=== PATIENT | female | born 2000 | race Caucasian/White ===

== ENCOUNTER 2023-02-27 12:16 | Emergency (ER) | payer OTHER ==
--- OUTSIDE RECORDS SUMMARY | 2023-02-27 12:20 | XMS REPORT | Continuity of Care Document ---
:2000 Author Organization [facility] t Address [address] [facility] [place] [place] [address] Care Team Providers Name Role Phone Bebeto Armenta Primary Care Physician Geovany Bebeto Chris Attending Clinician Unavailable Magi GROVES, Sendil K.H. Attending Clinician MAGI SENDCHRIS K.H. Attending Clinician Unavailable Doctor Unassigned, [place] Attending Clinician Unavailable Viraj Armenta Attending Clinician Leobardo Pool DO Attending Clinician FOZIA BARTHOLOMEW Attending Clinician Unavailable Nurse, [facility] Attending Clinician Unavailable Guera Enrique MD Attending Clinician MIGNON SOW K.H. Admitting Clinician Unavailable Payers Payer Name Policy Type Policy Number Effective Date Expiration Date [place] [address] [id number] 2021 [facility] 00:00:00 Spirit - [facility] YOLANDA [id number] 2019 HEALTHCARE 00:00:00 MEDICAID Problems Condition Condition Condition Status Onset Resolution Last Treating Co mments Source Name Details Category Date Date Treatment Clinician Date [id number] Encounter Problem Com mon for Spirit Depo-Prove - [facility] ra [facility] [id number] Non-season Problem Com mon al Spirit allergic [facility] [id number] Adult BMI Problem Com mon 40.0-44.9 Spirit kg/sq m - [facility] [id number] Uses Problem Common Depo-Prove Spirit ra as - [facility] primary [facility] [id number] Down's Problem Common syndrome [facility] [id number] History of Problem Co mmon open heart [facility] surgery [facility] Allergies, Adverse Reactions, Alerts Allergy Allergy Status Severity Reaction(s) Onset Inactive Treating Comm ents Source Name Type Date Date Clinician NO KNOWN Drug Active Univers ALLERGIE Class ity of [facility] Social History Social Habit Start Date Stop Date Quantity Comments Source Sex Assigned At [facility] History SDOH University o f Alcohol Comment [facility] History SDOH University o f Alcohol Std [facility] History SDOH University o f Alcohol Binge [facility] Exposure to Not sure University of SARS-CoV-2 [facility] (event[facility] Alcohol intake 2021-07-04 2021-07-04 Lifetime University of 00:00:00 00:00:00 non-drinker [facility] (finding) [facility] Tobacco use and 2019-02-19 2019-02-19 Never used Universit y of exposure 00:00:00 00:00:00 [facility] History SDOH 2019-02-19 2019-02-19 1 University o f Alcohol Frequency 00:00:00 00:00:00 [facility] edical Branch Smoking Status Start Date Stop Date Source Unknown if ever smoked [facility] Never smoker [facility] Medications Ordered Filled Start Stop Current Ordering Indication Dosage Frequency Signature Comments Components Source Medication Medication Date Date Medication? Clinician (SIG) Name Name [facility] Area Supervisor [facility] Area Supervisor No 150mg Common a a 1-05 Spirit (Medroxypro (Medroxypro 00:00: - [facility] gesterone gesterone ac) ac) [facility] Area Supervisor [facility] Area Supervisor 2021-06 No 150mg Common a a 0-06 Spirit (Medroxypro (Medroxypro 00:00: - [facility] gesterone gesterone ) ac) [facility] [employer] Area Supervisor [facility] [facility] [employer] Area Supervisor 2021-06 No 150mg Common a a 0-06 Spirit (Medroxypro (Medroxypro 00:00: - [facility] gesterone gesterone ) ac) [facility] [facility] [employer] Area Supervisor [facility] [facility] [employer] Area Supervisor 2021-06 No 150mg Common a a 0-06 Spirit (Medroxypro (Medroxypro 00:00: - [facility] gesterone gesterone ) ac) [facility] [employer] Area Supervisor [facility] [facility] [employer] Area Supervisor No 150mg Common a a 7-06 Spirit (Medroxypro (Medroxypro 00:00: - [facility] gesterone gesterone ) ac) [facility] [employer] Area Supervisor [facility] [facility] [employer] Area Supervisor No 150mg Common a a 7-06 Spirit (Medroxypro (Medroxypro 00:00: - [facility] gesterone gesterone ac) ac) [facility] [employer] Area Supervisor [employer] [facility] [employer] Area Supervisor No 150mg Common a a 7-06 Spirit (Medroxypro (Medroxypro 00:00: - [facility] gesterone gesterone ac) ac) [facility] [employer] Area Supervisor [facility] [facility] [employer] Area Supervisor No 150mg Common a a 7-06 Spirit (Medroxypro (Medroxypro 00:00: - [facility] gesterone gesterone ac) ac) [facility] [employer] Area Supervisor [employer] Area Supervisor No 150mg Common a a 7-06 Spirit (Medroxypro (Medroxypro 00:00: - [facility] gesterone gesterone ac) ac) [facility] [employer] Area Supervisor [facility] [facility] [employer] Area Supervisor No 150mg Common a a - Spirit (Medroxypro (Medroxypro 00:00: - [facility] gesterone gesterone ) ac) [facility] [employer] Area Supervisor [employer] Area Supervisor No 150mg Common a a 01-02 Spirit (Medroxypro (Medroxypro 00:00: - [facility] gesterone gesterone ) ac) [facility] [employer] Area Supervisor [employer] Area Supervisor No 150mg Common a a 01-02 Spirit (Medroxypro (Medroxypro 00:00: - [facility] gesterone gesterone ) ac) [facility] [employer] Area Supervisor [employer] Area Supervisor No 150mg Common a a 01-01 Spirit (Medroxypro (Medroxypro 00:00: - [facility] gesterone gesterone ) ac) [facility] [employer] Area Supervisor [employer] Area Supervisor No 150mg Common a a 01-01 Spirit (Medroxypro (Medroxypro 00:00: - [facility] gesterone gesterone ) ac) [facility] [employer] Area Supervisor [employer] Area Supervisor No 150mg Common a a 01-01 Spirit (Medroxypro (Medroxypro 00:00: - [facility] gesterone gesterone ) ac) [facility] [employer] Area Supervisor [employer] Area Supervisor No 150mg Common a a 01-01 Spirit (Medroxypro (Medroxypro 00:00: - [facility] gesterone gesterone ) ac) [facility] [employer] Area Supervisor [employer] Area Supervisor No 150mg Common a a - Spirit (Medroxypro (Medroxypro 00:00: - [facility] gesterone gesterone ac) ac) [facility] [employer] Area Supervisor [employer] Area Supervisor No 150mg Common a a - Spirit (Medroxypro (Medroxypro 00:00: - [facility] gesterone gesterone ac) ac) [facility] [employer] Area Supervisor [employer] Area Supervisor No 150mg Common a a 7-05 Spirit (Medroxypro (Medroxypro 00:00: - [facility] gesterone gesterone ac) ac) [facility] [employer] Area Supervisor [employer] Area Supervisor No 150mg Common a a 7- Spirit (Medroxypro (Medroxypro 00:00: - [facility]I gesterone gesterone ac) ac) [facility] Ketoconazol Ketoconazol 2021- No 1{appli QD Ketoconazo e 2 % e 2 % 12-14 cation} le 2 % 00:00: 00:00 00 :00 [facility] [facility] Area Supervisor [employer] Area Supervisor No 150mg Common a a 4- Spirit (Medroxypro (Medroxypro 00:00: - [facility]I gesterone gesterone ) ac) [facility] [employer] Area Supervisor [employer] Area Supervisor No 150mg Common a a 4- Spirit (Medroxypro (Medroxypro 00:00: - [facility]I gesterone gesterone ) ac) [facility] [employer] Area Supervisor [employer] Area Supervisor No 150mg Common a a 4- Spirit (Medroxypro (Medroxypro 00:00: - [facility] gesterone gesterone ac) ac) [facility] [employer] Area Supervisor [employer] Area Supervisor No 150mg Common a a 4- Spirit (Medroxypro (Medroxypro 00:00: - [facility] gesterone gesterone ac) ac) [facility] [employer] Area Supervisor [employer] Area Supervisor No 150mg Common a a 4- Spirit (Medroxypro (Medroxypro 00:00: - [facility] gesterone gesterone ac) ac) [facility] [employer] Area Supervisor [employer] Area Supervisor No 150mg Common a a 4- Spirit (Medroxypro (Medroxypro 00:00: - [facility]I gesterone gesterone ac) ac) [facility] [employer] Area Supervisor [employer] Area Supervisor No 150mg Common a a 4-04 Spirit (Medroxypro (Medroxypro 00:00: - [facility]I gesterone gesterone ) ac) [facility] [employer] Area Supervisor [employer] Area Supervisor No 150mg Common a a 4-04 Spirit (Medroxypro (Medroxypro 00:00: - [facility]I gesterone gesterone ) ac) [facility] [employer] Area Supervisor [employer] Area Supervisor No 150mg Common a a 4-04 Spirit (Medroxypro (Medroxypro 00:00: - [facility]I gesterone gesterone ) ac) [facility] [employer] Area Supervisor [employer] Area Supervisor No 150mg Common a a 4-04 Spirit (Medroxypro (Medroxypro 00:00: - [facility]I gesterone gesterone ) ac) [facility] Yes Take by Uni vers sodium 1-05 mouth. ity of (SINGULAIR 13:41: [place] ORAL) [address] [place] [address] Yes Take by Uni vers sodium 1-05 mouth. ity of (SINGULAIR 13:41: [place] ORAL) [address] [place] [address] Yes Take by Uni vers sodium 1-05 mouth. ity of (SINGULAIR 13:41: [place] ORAL) [address] [place] [address] Yes Take by Uni vers sodium 1-05 mouth. ity of (SINGULAIR 13:41: [place] ORAL) [address] [place] [address] [facility] [facility] Area Supervisor [employer] Area Supervisor No 150mg Common a a 1-03 Spirit (Medroxypro (Medroxypro 00:00: - [facility]I gesterone gesterone ac) ac) [facility] [employer] Area Supervisor [employer] Area Supervisor No 150mg Common a a 1-03 Spirit (Medroxypro (Medroxypro 00:00: - [facility]I gesterone gesterone ac) ac) [facility] [employer] Area Supervisor [employer] Area Supervisor 2022-0 No 150mg Common a a - Spirit (Medroxypro (Medroxypro 00:00: - [facility]I gesterone gesterone ) ac) [facility] [employer] Area Supervisor [employer] Area Supervisor No 150mg Common a a - Spirit (Medroxypro (Medroxypro 00:00: - [facility]I gesterone gesterone ) ac) [facility] [employer] Area Supervisor [employer] Area Supervisor No 150mg Common a a - Spirit (Medroxypro (Medroxypro 00:00: - [facility]I gesterone gesterone ) ac) [facility] [employer] Area Supervisor [employer] Area Supervisor No 150mg Common a a - Spirit (Medroxypro (Medroxypro 00:00: - [facility]I gesterone gesterone ) ac) [facility] [employer] Area Supervisor [employer] Area Supervisor No 150mg Common a a 07-02 Spirit (Medroxypro (Medroxypro 00:00: - [facility]I gesterone gesterone ) ac) [facility] [employer] Area Supervisor [employer] Area Supervisor No 150mg Common a a 07-02 Spirit (Medroxypro (Medroxypro 00:00: - [facility]I gesterone gesterone ) ac) [facility] [employer] Area Supervisor [employer] Area Supervisor No 150mg Common a a - Spirit (Medroxypro (Medroxypro 00:00: - [facility]I gesterone gesterone ) ac) [facility] [employer] Area Supervisor Dep[employer] Area Supervisor No 150mg Common a a - Spirit (Medroxypro (Medroxypro 00:00: - [facility]I gesterone gesterone ) ac) [facility] [employer] Area Supervisor [employer] Area Supervisor No 150mg Common a a - Spirit (Medroxypro (Medroxypro 00:00: - [facility]I gesterone gesterone ) ac) [facility] [employer] Area Supervisor [employer] Area Supervisor No 150mg Common a a 8-25 Spirit (Medroxypro (Medroxypro 00:00: - [facility]I gesterone gesterone ) ac) [facility] [employer] Area Supervisor [employer] Area Supervisor No 150mg Common a a 8-25 Spirit (Medroxypro (Medroxypro 00:00: - [facility]I gesterone gesterone ) ac) [facility] [employer] Area Supervisor [employer] Area Supervisor No 150mg Common a a 8-25 Spirit (Medroxypro (Medroxypro 00:00: - [facility]I gesterone gesterone ) ac) [facility] [employer] Area Supervisor [employer] Area Supervisor No 150mg Common a a 8-25 Spirit (Medroxypro (Medroxypro 00:00: - [facility]I gesterone gesterone ) ) [facility] [employer] Area Supervisor [employer] Area Supervisor No 150mg Common a a 8-25 Spirit (Medroxypro (Medroxypro 00:00: - [facility]I gesterone gesterone ) ) [facility] [employer] Area Supervisor [employer] Area Supervisor No 150mg Common a a 8-25 Spirit (Medroxypro (Medroxypro 00:00: - [facility]I gesterone gesterone ) ac) [facility] [employer] Area Supervisor Dep[employer] Area Supervisor No 150mg Common a a 8-25 Spirit (Medroxypro (Medroxypro 00:00: - [facility]I gesterone gesterone ) ac) [facility] [employer] Area Supervisor [employer] Area Supervisor No 150mg Common a a 8-25 Spirit (Medroxypro (Medroxypro 00:00: - [facility]I gesterone gesterone ) ac) [facility] [employer] Area Supervisor [employer] Area Supervisor No 150mg Common a a 8-25 Spirit (Medroxypro (Medroxypro 00:00: - [facility]I gesterone gesterone ) ) [facility] [employer] Area Supervisor [employer] Area Supervisor No 150mg Common a a 8-25 Spirit (Medroxypro (Medroxypro 00:00: - [facility]I gesterone gesterone ) ac) [facility] [employer] Area Supervisor [employer] Area Supervisor No 150mg Common a a 8-25 Spirit (Medroxypro (Medroxypro 00:00: - [facility]I gesterone gesterone ) ac) [facility] [employer] Area Supervisor [employer] Area Supervisor No 150mg Common a a 4-27 Spirit (Medroxypro (Medroxypro 00:00: - [facility]I gesterone gesterone ) ac) [facility] [employer] Area Supervisor [employer] Area Supervisor No 150mg Common a a 4-27 Spirit (Medroxypro (Medroxypro 00:00: - [facility]I gesterone gesterone ) ac) [facility] [employer] Area Supervisor [employer] Area Supervisor No 150mg Common a a 4-27 Spirit (Medroxypro (Medroxypro 00:00: - [facility]I gesterone gesterone ) ac) [facility] [employer] Area Supervisor [employer] Area Supervisor No 150mg Common a a 4-27 Spirit (Medroxypro (Medroxypro 00:00: - [facility]I gesterone gesterone ) ac) [facility] [employer] Area Supervisor [employer] Area Supervisor No 150mg Common a a 4-27 Spirit (Medroxypro (Medroxypro 00:00: - [facility]I gesterone gesterone ) ac) [facility] [employer] Area Supervisor [employer] Area Supervisor No 150mg Common a a 4-27 Spirit (Medroxypro (Medroxypro 00:00: - [facility]I gesterone gesterone ) ac) [facility] [employer] Area Supervisor [employer] Area Supervisor No 150mg Common a a 4-27 Spirit (Medroxypro (Medroxypro 00:00: - [facility]I gesterone gesterone ) ac) [facility] [employer] Area Supervisor [employer] Area Supervisor No 150mg Common a a 4-27 Spirit (Medroxypro (Medroxypro 00:00: - [facility]I gesterone gesterone ) ac) [facility] [employer] Area Supervisor [employer] Area Supervisor No 150mg Common a a 4-27 Spirit (Medroxypro (Medroxypro 00:00: - [facility]I gesterone gesterone ) ac) [facility] [employer] Area Supervisor [employer] Area Supervisor No 150mg Common a a 4-27 Spirit (Medroxypro (Medroxypro 00:00: - [facility]I gesterone gesterone ) ac) [facility] [employer] Area Supervisor [employer] Area Supervisor No 150mg Common a a 4-27 Spirit (Medroxypro (Medroxypro 00:00: - [facility]I gesterone gesterone ) ac) [facility] [employer] Area Supervisor [employer] Area Supervisor No 150mg Common a a 8-26 Spirit (Medroxypro (Medroxypro 00:00: - [facility]I gesterone gesterone ) ac) [facility] [employer] Area Supervisor [employer] Area Supervisor No 150mg Common a a 8-26 Spirit (Medroxypro (Medroxypro 00:00: - [facility]I gesterone gesterone ) ac) [facility] [employer] Area Supervisor [employer] Area Supervisor No 150mg Common a a 8-26 Spirit (Medroxypro (Medroxypro 00:00: - [facility]I gesterone gesterone ) ac) [facility] [employer] Area Supervisor [employer] Area Supervisor No 150mg Common a a 8-26 Spirit (Medroxypro (Medroxypro 00:00: - [facility] gesterone gesterone ) ac) [facility] [employer] Area Supervisor [employer] Area Supervisor No 150mg Common a a 8-26 Spirit (Medroxypro (Medroxypro 00:00: - [facility]I gesterone gesterone ) ac) [facility] [employer] Area Supervisor [employer] Area Supervisor 2019-0 No 150mg Common a a 8-26 Spirit (Medroxypro (Medroxypro 00:00: - [facility]I gesterone gesterone ) ac) [facility] [employer] Area Supervisor [employer] Area Supervisor 2019-0 No 150mg Common a a 8-26 Spirit (Medroxypro (Medroxypro 00:00: - [facility]I gesterone gesterone ) ac) [facility] [employer] Area Supervisor [employer] Area Supervisor 2019-0 No 150mg Common a a 8-26 Spirit (Medroxypro (Medroxypro 00:00: - [facility]I gesterone gesterone ) ac) [facility] [employer] Area Supervisor [employer] Area Supervisor 2019-0 No 150mg Common a a 8-26 Spirit (Medroxypro (Medroxypro 00:00: - [facility]I gesterone gesterone ) ac) [facility] [employer] Area Supervisor [employer] Area Supervisor 2019-0 No 150mg Common a a 8-26 Spirit (Medroxypro (Medroxypro 00:00: - [facility]I gesterone gesterone ) ac) [facility] [employer] Area Supervisor [employer] Area Supervisor 2019-0 No 150mg Common a a 8-26 Spirit (Medroxypro (Medroxypro 00:00: - [facility]I gesterone gesterone ) ac) [facility] [employer] Area Supervisor [employer] Area Supervisor 2019-0 No 150mg Common a a 5-26 Spirit (Medroxypro (Medroxypro 00:00: - [facility]I gesterone gesterone ) ac) [facility] [employer] Area Supervisor [employer] Area Supervisor 2019-0 No 150mg Common a a 5-26 Spirit (Medroxypro (Medroxypro 00:00: - [facility]I gesterone gesterone ) ac) [facility] [employer] Area Supervisor [employer] Area Supervisor 2019-0 No 150mg Common a a 5-26 Spirit (Medroxypro (Medroxypro 00:00: - [facility]I gesterone gesterone ac) ac) [facility] [employer] Area Supervisor [employer] Area Supervisor 2020-0 No 150mg Common a a 5-26 Spirit (Medroxypro (Medroxypro 00:00: - [facility]I gesterone gesterone ) ac) [facility] [employer] Area Supervisor [employer] Area Supervisor 2019-0 No 150mg Common a a 5-26 Spirit (Medroxypro (Medroxypro 00:00: - [facility]I gesterone gesterone ) ac) [facility] [employer] Area Supervisor [employer] Area Supervisor 2019-0 No 150mg Common a a 5-26 Spirit (Medroxypro (Medroxypro 00:00: - [facility]I gesterone gesterone ) ac) [facility] [employer] Area Supervisor [employer] Area Supervisor 2019-0 No 150mg Common a a 5-26 Spirit (Medroxypro (Medroxypro 00:00: - [facility]I gesterone gesterone ) ac) [facility] [employer] Area Supervisor [employer] Area Supervisor 2019-0 No 150mg Common a a 5-26 Spirit (Medroxypro (Medroxypro 00:00: - [facility]I gesterone gesterone ) ac) [facility] [employer] Area Supervisor [employer] Area Supervisor 2019-0 No 150mg Common a a 5-26 Spirit (Medroxypro (Medroxypro 00:00: - [facility]I gesterone gesterone ) ac) [facility] [employer] Area Supervisor [employer] Area Supervisor 2019-0 No 150mg Common a a 5-26 Spirit (Medroxypro (Medroxypro 00:00: - [facility]I gesterone gesterone ) ac) [facility] [employer] Area Supervisor [employer] Area Supervisor 2019-0 No 150mg Common a a 5-26 Spirit (Medroxypro (Medroxypro 00:00: - [facility]I gesterone gesterone ) ) [facility] medroxyprog medroxyprog 2019-0 No 150mL Common esterone ac esterone ac 2-25 S pirit 00:00: - [facility] medroxyprog medroxyprog 2019-0 No 150mL Common esterone ac esterone ac 2-25 S pirit 00:00: - [facility] medroxyprog medroxyprog 2020-0 No 150mL Common esterone ac esterone ac 2-25 S pirit 00:00: - [facility]I 00 [facility] medroxyprog medroxyprog 2020-0 No 150mL Common esterone ac esterone ac 2-25 S pirit 00:00: - [facility]I 00 [facility] medroxyprog medroxyprog 2020-0 No 150mL Common esterone ac esterone ac 2-25 S pirit 00:00: - [facility]I 00 [facility] medroxyprog medroxyprog 2020-0 No 150mL Common esterone ac esterone ac 2-25 S pirit 00:00: - [facility]I 00 [facility] medroxyprog medroxyprog 2020-0 No 150mL Common esterone ac esterone ac 2-25 S pirit 00:00: - [facility]I 00 [facility] medroxyprog medroxyprog 2020-0 No 150mL Common esterone ac esterone ac 2-25 S pirit 00:00: - [facility]I 00 [facility] medroxyprog medroxyprog 2020-0 No 150mL Common esterone ac esterone ac 2-25 S pirit 00:00: - [facility]I 00 [facility] medroxyprog medroxyprog 2020-0 No 150mL Common esterone ac esterone ac 2-25 S pirit 00:00: - [facility]I 00 [facility] medroxyprog medroxyprog 2020-0 No 150mL Common esterone ac esterone ac 2-25 S pirit 00:00: - [facility]I 00 [facility] [employer] Area Supervisor [employer] Area Supervisor 2018- No 150mg Common a a 1-25 Spirit (Medroxypro (Medroxypro 00:00: - [facility] gesterone gesterone [facility] Area Supervisor [employer] Area Supervisor 2018- No 150mg Common a a 1-25 Spirit (Medroxypro (Medroxypro 00:00: - [facility] gesterone gesterone 00 St ac) ac) [facility] [employer] Area Supervisor [employer] Area Supervisor 2018- No 150mg Common a a 1-25 Spirit (Medroxypro (Medroxypro 00:00: - [facility]I gesterone gesterone ) ac) [facility] [employer] Area Supervisor [employer] Area Supervisor 2018-06 No 150mg Common a a 1-25 Spirit (Medroxypro (Medroxypro 00:00: - [facility] gesterone gesterone ) ac) [facility] [employer] Area Supervisor [employer] Area Supervisor 2018-06 No 150mg Common a a 1-25 Spirit (Medroxypro (Medroxypro 00:00: - [facility] gesterone gesterone ) ac) [facility] [employer] Area Supervisor [employer] Area Supervisor 2018-06 No 150mg Common a a 1-25 Spirit (Medroxypro (Medroxypro 00:00: - [facility] gesterone gesterone ) ) [facility] [employer] Area Supervisor [employer] Area Supervisor 2018-06 No 150mg Common a a 1-25 Spirit (Medroxypro (Medroxypro 00:00: - [facility] gesterone gesterone ) ) [facility] [employer] Area Supervisor [employer] Area Supervisor 2018-06 No 150mg Common a a 1-25 Spirit (Medroxypro (Medroxypro 00:00: - [facility] gesterone gesterone ) ) [facility] [employer] Area Supervisor [employer] Area Supervisor 2018-06 No 150mg Common a a 1-25 Spirit (Medroxypro (Medroxypro 00:00: - [facility] gesterone gesterone ) ) [facility] [employer] Area Supervisor [employer] Area Supervisor 2018-06 No 150mg Common a a 1-25 Spirit (Medroxypro (Medroxypro 00:00: - CHI gesterone gesterone ) ac) [facility] [employer] Area Supervisor [employer] Area Supervisor 2018-06 No 150mg Common a a 1-25 Spirit (Medroxypro (Medroxypro 00:00: - CHI gesterone gesterone ) ac) [facility] Montelukast Montelukast Yes Bebeto 1 tablet Common Sodium Sodium Armenta [facility] Montelukast Montelukast No Montelukas Sodium 10 Sodium 10 t Sodium MG MG 10 MG Montelukast Montelukast No Montelukas Sodium 10 Sodium 10 t Sodium MG MG 10 MG Montelukast Montelukast No Montelukas Sodium 10 Sodium 10 t Sodium MG MG 10 MG methylPREDN methylPREDN No QD methylPRED ISolone 4 ISolone 4 NISolone 4 MG MG MG Pseudoeph-B Pseudoeph-B No 5{ml_as QID Pseudoeph- romphen-DM romphen-DM _needed Bromphen-D 210 } M 302-10 MG/5ML MG/5ML MG/5ML Montelukast Montelukast No Montelukas Sodium 10 Sodium 10 t Sodium MG MG 10 MG methylPREDN methylPREDN No QD methylPRED ISolone 4 ISolone 4 NISolone 4 MG MG MG Pseudoeph-B Pseudoeph-B No 5{ml_as QID Pseudoeph- romphen-DM romphen-DM _needed Bromphen-D } M 302-10 MG/5ML MG/5ML MG/5ML Montelukast Montelukast No Montelukas Sodium 10 Sodium 10 t Sodium MG MG 10 MG methylPREDN methylPREDN No QD methylPRED ISolone 4 ISolone 4 NISolone 4 MG MG MG Montelukast Montelukast No Montelukas Sodium 10 Sodium 10 t Sodium MG MG 10 MG Pseudoeph-B Pseudoeph-B No 5{ml_as QID Pseudoeph- romphen-DM romphen-DM _needed Bromphen-D 10 } M 302-10 MG/5ML MG/5ML MG/5ML methylPREDN methylPREDN No QD methylPRED ISolone 4 ISolone 4 NISolone 4 MG MG MG Montelukast Montelukast No 1{table QD Montelukas Sodium 10 Sodium 10 t} t Sodium MG MG 10 MG Pseudoeph-B Pseudoeph-B No 5{ml_as QID Pseudoeph- romphen-DM romphen-DM _needed Bromphen-D 10 } M 302-10 MG/5ML MG/5ML MG/5ML methylPREDN methylPREDN No QD methylPRED ISolone 4 ISolone 4 NISolone 4 MG MG MG Montelukast Montelukast No 1{table QD Montelukas Sodium 10 Sodium 10 t} t Sodium MG MG 10 MG Pseudoeph-B Pseudoeph-B No 5{ml_as QID Pseudoeph- romphen-DM romphen-DM _needed Bromphen-D } M 302-10 MG/5ML MG/5ML MG/5ML methylPREDN methylPREDN No QD methylPRED ISolone 4 ISolone 4 NISolone 4 MG MG MG Pseudoeph-B Pseudoeph-B No 5{ml_as QID Pseudoeph- romphen-DM romphen-DM _needed Bromphen-D } M 302-10 MG/5ML MG/5ML MG/5ML Montelukast Montelukast No Montelukas Sodium 10 Sodium 10 t Sodium MG MG 10 MG methylPREDN methylPREDN No QD methylPRED ISolone 4 ISolone 4 NISolone 4 MG MG MG Pseudoeph-B Pseudoeph-B No 5{ml_as QID Pseudoeph- romphen-DM romphen-DM _needed Bromphen-D } M 302-10 MG/5ML MG/5ML MG/5ML Montelukast Montelukast No Montelukas Sodium 10 Sodium 10 t Sodium MG MG 10 MG Montelukast Montelukast No 1{table QD Montelukas Sodium 10 Sodium 10 t} t Sodium MG MG 10 MG Montelukast Montelukast No Montelukas Sodium 10 Sodium 10 t Sodium MG MG 10 MG Immunizations Ordered Immunization Filled Immunization Date Status Commen ts Source Name Name Flucelvax - single Flucelvax - single 2022-04-04 Completed [facility] dose syringe dose syringe 13:57:00 - [facility] Flucelvax - single Flucelvax - single 2022-04-04 Completed [facility] dose syringe dose syringe 13:57:00 - [facility] Flucelvax - single Flucelvax - single 2022-04-04 Completed [facility] dose syringe dose syringe 13:57:00 - [facility] Moderna COVID-19 Moderna COVID-19 2020-10-12 Completed [facility] Vaccine Vaccine 17:24:00 - [facility] Moderna COVID-19 Moderna COVID-19 2020-10-12 Completed [facility] Vaccine Vaccine 17:24:00 - [facility] Moderna COVID-19 Moderna COVID-19 2020-10-12 Completed [facility] Vaccine Vaccine 17:24:00 - [facility] Moderna COVID-19 Moderna COVID-19 2020-10-12 Completed [facility] Vacc[facility] 17:24:00 [facility] Moderna COVID-19 Moderna COVID-19 2020-10-12 Completed Co [facility] Vaccine Vaccine 17:24:00 [facility] Moderna COVID-19 Moderna COVID-19 2020-10-12 Completed [facility] Vaccine Vaccine 17:24:00 [facility] Moderna COVID-19 Moderna COVID-19 2020-10-12 Completed Co [facility] Vaccine Vaccine 17:24:00 [facility] Moderna COVID-19 Moderna COVID-19 2020-10-12 Completed Co [facility] Vaccine Vaccine 17:24:00 - [facility] Moderna COVID-19 Moderna COVID-19 2020-10-12 Completed [facility] Vaccine Vaccine 17:24:00 [facility] Moderna COVID-19 Moderna COVID-19 2020-10-12 Completed Co m[facility] Vaccine Vaccine 17:24:00 [facility] Moderna COVID-19 Moderna COVID-19 2020-10-12 Completed Co m[facility] Vaccine Vaccine 17:24:00 [facility] Moderna COVID-19 Moderna COVID-19 2020-10-12 Completed Co mmon [facility] Vaccine Vaccine 17:24:00 [facility] Moderna COVID-19 Moderna COVID-19 2020-09-14 Completed Co mmon [facility] Vaccine Vaccine 17:24:00 [facility] Moderna COVID-19 Moderna COVID-19 2020-09-14 Completed Co mmon [facility] Vaccine Vaccine 17:24:00 - [facility] Moderna COVID-19 Moderna COVID-19 2020-09-14 Completed Co mmon [facility] Vaccine Vaccine 17:24:00 - [facility] Moderna COVID-19 Moderna COVID-19 2020-09-14 Completed Co mmon [facility] Vaccine Vaccine 17:24:00 - [facility] Moderna COVID-19 Moderna COVID-19 2020-09-14 Completed Co mmon [facility] Vaccine Vaccine 17:24:00 - [facility] Moderna COVID-19 Moderna COVID-19 2020-09-14 Completed Co mmon [facility] Vaccine Vaccine 17:24:00 - [facility] Moderna COVID-19 Moderna COVID-19 2020-09-14 Completed Co mmon [facility] Vaccine Vaccine 17:24:00 - [facility] Moderna COVID-19 Moderna COVID-19 2020-09-14 Completed Co mmon [facility] Vaccine Vaccine 17:24:00 - [facility] Moderna COVID-19 Moderna COVID-19 2020-09-14 Completed Co mmon [facility] Vaccine Vaccine 17:24:00 - [facility] Moderna COVID-19 Moderna COVID-19 2020-09-14 Completed Co mmon [facility] Vaccine Vaccine 17:24:00 - [facility] Moderna COVID-19 Moderna COVID-19 2020-09-14 Completed Co mmon [facility] Vaccine Vaccine 17:24:00 - [facility] Moderna COVID-19 Moderna COVID-19 2020-09-14 Completed Co mmon [facility] Vaccine Vaccine 17:24:00 - [facility] Afluria single dose Afluria single dose 2020-03-29 Completed [facility] 14:20:00 [facility] Afluria single dose Afluria single dose 2020-03-29 Completed [facility] 14:20: [facility] Afluria single dose Afluria single dose 2020-03-29 Completed [facility] 14:20:00 [facility] Afluria single dose Afluria single dose 2020-03-29 Completed [facility] 14:20:00 - [facility] Afluria single dose Afluria single dose 2020-03-29 Completed [facility] 14:20:00 [facility] Afluria single dose Afluria single dose 2020-03-29 Completed [facility] 14:20:00 [facility] Afluria single dose Afluria single dose 2020-03-29 Completed [facility] 14:20:00 [facility] Afluria single dose Afluria single dose 2020-03-29 Completed [facility] 14:20:00 [facility] Afluria single dose Afluria single dose 2020-03-29 Completed [facility] 14:20:00 [facility] Afluria single dose Afluria single dose 2020-03-29 Completed [facility] 14:20:00 [facility] Afluria single dose Afluria single dose 2020-03-29 Completed [facility] 14:20:00 [facility] Afluria single dose Afluria single dose 2020-03-29 Completed [facility] 14:20:00 [facility] Vital Signs Vital Name Observation Time Observation Value Comments Source height 2022-07-04 10:00:00 55 [in_i] [facility] weight 2022-07-04 10:00:00 193.4 [lb_av] [facility] temperature 2022-07-04 10:00:00 97.7 [degF] [facility] bmi 2022-07-04 10:00:00 44.95 kg/m2 [facility] oximetry 2022-07-04 10:00:00 98 % [facility] respiratory rate 2022-07-04 10:00:00 17 /min Comm on [facility] blood pressure 2022-07-04 10:00:00 121 mm[Hg] Common [facility] - systolic [facility] blood pressure 2022-07-04 10:00:00 67 mm[Hg] [facility] - diastolic [facility] height 2022-04-04 13:30:00 55 [in_i] Common [facility] weight 2022-04-04 13:30:00 192.5 [lb_av] Common [facility] temperature 2022-04-04 13:30:00 97.7 [degF] [facility] bmi 2022-04-04 13:30:00 44.74 kg/m2 Common [facility] oximetry 2022-04-04 13:30:00 98 % Common [facility] respiratory rate 2022-04-04 13:30:00 17 /min Comm on [facility] blood pressure 2022-04-04 13:30:00 119 mm[Hg] Common [facility] systolic [facility] blood pressure 2022-04-04 13:30:00 63 mm[Hg] Common [facility] diastolic [facility] height 2022-03-29 08:40:00 55 [in_i] Common [facility] weight 2022-03-29 08:40:00 198.8 [lb_av] [facility] bmi 2022-03-29 08:40:00 46.2 kg/m2 Common [facility] height 2022-01-02 14:00:00 55 [in_i] [facility] weight 2022-01-02 14:00:00 198.8 [lb_av] [facility] temperature 2022-01-02 14:00:00 97.8 [degF] Common [facility] bmi 2022-01-02 14:00:00 46.2 kg/m2 Common [facility] oximetry 2022-01-02 14:00:00 97 % Common [facility] respiratory rate 2022-01-02 14:00:00 17 /min Comm on [facility] blood pressure 2022-01-02 14:00:00 119 mm[Hg] Common [facility] - systolic [facility] blood pressure 2022-01-02 14:00:00 72 mm[Hg] Common [facility] - diastolic [facility] height 2021-12-14 11:00:00 55 [in_i] Common [facility] weight 2021-12-14 11:00:00 198.8 [lb_av] [facility] temperature 2021-12-14 11:00:00 98.3 [degF] [facility] bmi 2021-12-14 11:00:00 46.2 kg/m2 Common [facility] oximetry 2021-12-14 11:00:00 99 % Common [facility] respiratory rate 2021-12-14 11:00:00 17 /min Comm on [facility] blood pressure 2021-12-14 11:00:00 120 mm[Hg] Common [facility] - systolic [facility] blood pressure 2021-12-14 11:00:00 65 mm[Hg] Common [facility] - diastolic [facility] height 2021-10-01 14:00:00 55 [in_i] Common [facility] weight 2021-10-01 14:00:00 194.6 [lb_av] [facility] temperature 2021-10-01 14:00:00 97.9 [degF] [facility] bmi 2021-10-01 14:00:00 45.22 kg/m2 Common [facility] oximetry 2021-10-01 14:00:00 97 % Common [facility] respiratory rate 2021-10-01 14:00:00 17 /min Comm on [facility] blood pressure 2021-10-01 14:00:00 120 mm[Hg] Common [facility] - systolic [facility] blood pressure 2021-10-01 14:00:00 61 mm[Hg] Common [facility] - diastolic [facility] Systolic blood 2021-07-04 19:42:00 102 mm[Hg] manual Univer sity of pressure [facility] Diastolic blood 2021-07-04 19:42:00 62 mm[Hg] manual Unive rsity of pressure [facility] Heart rate 2021-07-04 19:42:00 83 /min [facility] Respiratory rate 2021-07-04 19:42:00 22 /min [facility] Body height 2021-07-04 19:42:00 144.8 cm [facility] Body weight 2021-07-04 19:42:00 90.357 kg [facility] BMI 2021-07-04 19:42:00 43.11 kg/m2 [facility] Oxygen saturation in 2021-07-04 19:42:00 94 /min [facility] Arterial blood by [facility] Pulse oximetry Branch height 2021-07-02 14:20:00 55 [in_i] Common [facility] weight 2021-07-02 14:20:00 194.0 [lb_av] Common [facility] temperature 2021-07-02 14:20:00 97.8 [degF] Common [facility] bmi 2021-07-02 14:20:00 45.08 kg/m2 [facility] oximetry 2021-07-02 14:20:00 97 % [facility] respiratory rate 2021-07-02 14:20:00 17 /min Comm on [facility] blood pressure 2021-07-02 14:20:00 122 mm[Hg] Common [facility] - systolic [facility] blood pressure 2021-07-02 14:20:00 65 mm[Hg] Common [facility] - diastolic [facility] Procedures This patient has no known procedures. Encounters Start End Encounter Admission Attending Care Care Encounter Source Date/Time Date/Time Type Type Clinicians Facility Department ID 2022-10-02 Outpatient TROY Armenta [facility] [id number] Common 13:08:01 [facility] [address] [facility] 2022-06-12 Outpatient TROY Armenta [facility] [id number] Common 10:56:00 [facility] [address] [facility] 2021-12-14 Outpatient Armenta, STLMLC STLMLC [id number] Common 10:46:00 Bebeto [facility] 2021-10-01 Outpatient Armenta, STLMLC STLMLC [id number] Common 13:55:00 Bebeto [facility] 2021-07-25 Outpatient Armenta, STLMLC STLMLC [id number] Common 14:30:14 Bebeto [facility] 2021-07-25 Outpatient Armenta, STLMLC STLMLC [id number] Common 13:42:46 Bebeto [facility] 2021-07-25 Outpatient Armenta, STLMLC STLMLC [id number] Common 12:56:29 Bebeto [facility] 2021-07-25 Outpatient Armenta, STLMLC STLMLC [id number] Common 12:23:58 Bebeto [address] [facility] 2021-07-25 Outpatient Armenta, STLMLC STLMLC [id number] Common 11:10:00 Bebeto [address] [facility] 2021-07-25 Outpatient Armenta, STLMLC STLMLC [id number] Common 11:02:04 Bebeto [address] [facility] 2021-07-25 Outpatient Armenta, STLMLC STLMLC [id number] Common 10:58:48 Bebeto [address] [facility] 2022-07-04 2022-07-04 OFFICE STLMLC STLMLC [id number] Co mmon 00:00:00 00:00:00 VISIT [facility] PT - [facility] 2022-06-06 2022-06-06 (TEL) STLMLC STLMLC [id number] Co mmon 00:00:00 00:00:00 [facility] 2022-04-04 2022-04-04 OFFICE STLMLC STLMLC [id number] Co mmon 00:00:00 00:00:00 VISIT [facility] PT - CHI LEVEL 2 [facility] 2022-03-29 2022-03-29 OFFICE STLMLC STLMLC [id number] Co mmon 00:00:00 00:00:00 VISIT EST Spir it PT LEVEL 3 - [facility] 2022-03-28 2022-03-28 (TEL) STLMLC STLMLC [id number] Co mmon 00:00:00 00:00:00 [facility] 2022-01-02 2022-01-02 OFFICE STLMLC STLMLC [id number] Co mmon 00:00:00 00:00:00 VISIT Spirit ESTAB PT - CHI LEVEL 2 [facility] 2021-12-14 2021-12-14 OFFICE STLMLC STLMLC [id number] Co mmon 00:00:00 00:00:00 VISIT EST Spir it PT LEVEL 3 - [facility] 2021-10-01 2021-10-01 OFFICE STLMLC STLMLC [id number] Co mmon 00:00:00 00:00:00 VISIT Spirit ESTAB PT - CHI LEVEL 2 [facility] 2021-09-27 2021-09-27 (TEL) STLMLC STLMLC [id number] Co mmon 00:00:00 00:00:00 [facility] 2021-08-02 2021-08-02 [facility] [id number] Univers 10:25:35 23:59:00 Encounter [facility] [id number] [id number] [id number] [address] 2021-08-02 2021-08-02 [place] [id number] Univers 10:24:44 10:24:44 Encounter [facility] [id number] [id number] [id number] [address] 2021-08-02 2021-08-02 Outpatient Valdo SOW [facility] [id number] Univers 00:00:00 10:24:44 SENDIL ity [facility] 2021-07-04 2021-07-04 [facility] [id number] Univers 13:00:00 14:05:14 SENDIL ity [facility] 2021-07-04 2021-07-04 [facility] 1.2.840.114 [id number] Univers 13:00:00 14:05:14 Visit Mignon VAN [id number] [id number] [id number] Nj dical NAL 059 [facility] 2021-07-04 2021-07-04 Outpatient [facility] [id number] Univers 13:00:00 14:05:14 [facility] 2021-07[facility]02 2021-07-02 [facility] [id number] Co mmon 00:00:00 00:00:00 VISIT Javi MOLINA PT - CHI LEVEL 2 [facility] 2021-06-28 2021-06-28 Outpatient [facility] [id number] Univers 07:58:07 23:59:00 SENDIL ity [facility] 2021-06-28 2021-06-28 Hospital [facility] 1.2.840.114 [id number] Univers 07:58:07 23:59:00 Encounter Mignon VAN [id number] [id number] [id number] Nj dical NAL 843 [facility] 2021-06-14 2021-06-14 [facility]phone [facility] [id number] Univers 00:00:00 00:00:00 Sendil Nori VAN [id number] [id number] [id number] Nj dical NAL 843 [facility] 2021-05-28 2021-05-28 Outpatient R [facility] [id number] Univers 13:00:00 13:00:00 SENDIL ity [facility] 2021-05-04 2021-05-04 Orders Doctor CALIX [id number] [id number] Univers 00:00:00 00:00:00 Only Unassigned, DION [id number] ity of [place] [facility] [id number] Alexi as [id number] [address] 2021-04-25 2021-04-25 Office Magi [facility] 1.2.840.114 [id number] Univers 09:30:00 10:00:13 Visit Sendil Nori VAN [id number] [id number] [id number] Nj dical [facility] 059 [facility] 2021-04-25 2021-04-25 Outpatient R MAGI [facility] [id number] Univers 09:30:00 10:00:13 SENDIL ity [facility] 2021-04-25 2021-04-25 Outpatient [facility] [id number] Univers 09:30:00 09:30:00 SENDIL ity [facility] 2021-04-25 2021-04-25 Outpatient R MAGI [facility] [id number] Univers 09:30:00 09:30:00 SENDIL ity [facility] 2021-04-25 2021-04-25 Orders Doctor FIFI 1.2.840.114 [id number] Univers 00:00:00 00:00:00 Only Unassigned, DION [id number] ity of [place] [facility] [id number] Alexi as [id number] [facility] [address] [place] 2021-03-27 2021-03-27 FIFI [place] 1.2.840.114 [id number] Univers 00:00:00 00:00:00 (Out) Viraj DION [id number] it y of HOSPITAL [id number] Alexi as [id number] [facility] 043 [place] 2021-02-22 2021-02-22 Orders Doctor CALIX 1.2.840.114 [id number] Univers 00:00:00 00:00:00 Only Unassigned, DION [id number] ity of [place] [facility] [id number] Alexi as [id number] [address] 2021-02-21 2021-02-21 Outpatient STLMLC STLMLC [id number] Common 00:00:00 00:00:00 [facility] 2021-02-21 2021-02-21 Outpatient STLMLC STLMLC [id number] Common 00:00:00 00:00:00 [facility] 2021-02-19 2021-02-19 Outpatient STLMLC STLMLC [id number] Common 00:00:00 00:00:00 [facility] 2021-02-19 2021-02-19 Outpatient STLMLC STLMLC [id number] Common 00:00:00 00:00:00 [facility] 2020-11-16 2020-11-16 Outpatient STLMLC STLMLC [id number] Common 00:00:00 00:00:00 [facility] 2020-10-24 2020-10-24 Outpatient STLMLC STLMLC [id number] Common 00:00:00 00:00:00 [facility] 2020-09-19 2020-09-19 [facility] 1.2.840.114 [id number] Univers 00:00:00 00:00:00 Outreach [facility] [id number] i [facility] [id number] Aileen LYNCH [id number] [address] 2020-06-12 2020-06-12 Outpatient Valdo BARTHOLOMEW [facility] [id number] Univers 14:00:00 14:00:00 FOZIA [facility] 2020-06-12 2020-06-12 Outpatient Valdo BARTHOLOMEW [facility] [id number] Univers 14:00:00 [facility] 2020-03-[facility] 2020-03-29 Outpatient STLMLC STLMLC [id number] Common 00:00:00 00:00:00 [facility] 2020-02-23 2020-02-23 Outpatient [facility] [id number] Common 09:00:00 09:00:[address] [facility] 2019-11-23 2019-11-23 Outpatient [facility] [id number] Common 13:30:00 13:30:[address] [facility] 2019-10-08 2019-10-08 Outpatient [facility] [id number] Common 11:06:00 11:06:[address] [facility] 2019-08-24 2019-08-24 Outpatient [facility] [id number] Common 13:00:00 13:00:[address] [facility] 2019-07-20 2019-07-20 Outpatient [facility] [id number] Common 09:45:00 09:45:[address] [facility] 2019-05-24 2019-05-24 Outpatient [facility] [id number] Common 13:00:00 13:00:[address] [facility] 2019-04-08 2019-04-08 Outpatient [facility] [id number] Common 13:30:00 13:30:[address] [facility] 2019-03-23 2019-03-23 Outpatient [facility] [id number] Common 16:50:00 16:50:[address] [facility] 2019-03-08 2019-03-08 Outpatient [facility] [id number] Common 14:45:00 14:45:[address] [facility] 2019-02-27 2019-02-27 Orders Doctor CALIX 1.2.840.[id number] [facility] 00:00:00 00:00:00 Only Unassigned, DION [id number] ity of [place] [facility] [id number] Alexi as [id number] [place] [address] [place] 2019-02-24 2019-02-24 Outpatient [facility] [id number] Common 14:30:00 14:30:00 t [employer] Spir it Drive [facility] Family [facility] 2019-02-19 2019-02-19 Nurse Nurse, [facility] 1.2.840.[id number] [facility] 10:29:19 11:16:55 Visit Klaus Guera Shahid Van [id number] ity of [id number] Profess[place] [id number] Nj dical [address] 2001-11-24 2001-11-24 Orders Doctor FIFI 1.2.840.114 [id number] Univers 00:00:00 00:00:00 Only Unassigned, DION [id number] ity of [place] [facility] [id number] Alexi as [id number] [address] 1998 1998 Orders Doctor CALIX 1.2.840.114 [id number] Univers 00:00:00 00:00:00 Only Unassigned, DION [id number] ity of [place] [facility] [id number] Alexi as [id number] [address] 1998 1998 Orders Doctor CALIX 1.2.840.114 [id number] Univers 00:00:00 00:00:00 Only Unassigned, DION [id number] ity of [place] [facility] [id number] Alexi as [id number] [address] 1998 1998 Orders Doctor FIFI 1.2.840.114 [id number] Univers 00:00:00 00:00:00 Only Unassigned, DION [id number] ity of [place] [facility] [id number] Alexi as [id number] [address] 1998 1998 Orders Doctor FIFI Ramírez2.840.114 [id number] Univers 00:00:00 00:00:00 Only Unassigned, DION [id number] ity of [place] [facility] [id number] Alexi as [id number] [place] [address] [place] 1998 1998 Orders Doctor FIFI 1.2.840.[id number] [facility] 00:00:00 00:00:00 Only Unassigned, DION [id number] ity of [place] [facility] [id number] Alexi as [phone] [place] [address] [place] Results This patient has no known results.
--- NOTE | 2023-02-27 12:38 | ER ---
Nurse's Notes [facility] Name: Tanna Ramirez Age: 23 yrs Sex: Female : 2000 Arrival Date: 02/27/2023 Time: 12:16 Bed IW2 Private MD: Diagnosis: Erythema intertrigo Presentation: 02/27 12:35 Chief complaint: Patient states: Rash to pelvic area skin for 3 months. Coronavirus ll1 screen: Client denies travel out of the [place] in the last 14 days. At this time, the client does not indicate any symptoms associated with coronavirus-19. Ebola Screen: Patient denies travel to an Ebola-affected area in the 21 days before illness onset. Initial Sepsis Screen: Does the patient meet any 2 criteria? No. Patient's initial sepsis screen is negative. Does the patient have a suspected source of infection? Yes: Skin breakdown/wound. Risk Assessment: Do you want to hurt yourself or someone else? Patient reports no desire to harm self or others. Onset of symptoms was November 27, 2022. 12:35 Method Of Arrival: Ambulatory ll1 12:35 Acuity: FELICIA 4 ll1 Triage Assessment: 12:36 General: Appears in no apparent distress. Behavior is calm, cooperative, appropriate ll1 for age. Pain: Denies pain. Derm: rash to pannus. 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 - Social history:: Smoking status: Patient denies any tobacco usage or history of. Screenin:16 [facility] ED Fall Risk Assessment (Adult) Score/Fall Risk Level 0 - 2 = Low Risk ll1 Oriented to surroundings, Maintained a safe environment, Educated pt \T\ family on fall prevention, incl call for assistance when getting out of bed, Hourly rounding (assess needs \T\ fall precautionary measures) done. Abuse screen: Denies threats or abuse. Nutritional screening: No deficits noted. Tuberculosis screening: No symptoms or risk factors identified. Assessment: 13:16 Reassessment: No changes from previously documented assessment. Patient and/or family ll1 updated on plan of care and expected duration. Pain level reassessed. Patient is alert, oriented x 3, equal unlabored respirations, skin warm/dry/pink. Vital Signs: 12:39 BP 154 / 95; Pulse 79; Resp 18; Temp 97.9; Pulse Ox 99% ; ap3 ED Course: 12:17 Patient arrived in ED. 4 12:18 [facility] 12:18 Rod Amaya DO is Attending Physician. [facility] 12:32 Arm band placed on. ll1 12:36 Triage completed. ll1 13:16 Micky Parks, RN is Primary Nurse. ll1 13:16 No provider procedures requiring assistance completed. Patient did not have IV access ll1 during this emergency room visit. 13:17 Patient has correct armband on for positive identification. Bed in low position. Call ll1 light in reach. Provided Education on: n/a. Administered Medications: No medications were administered Medication: 13:17 VIS not applicable for this client. ll1 Outcome: 12:38 Discharge ordered by . [facility] 13:17 Discharged to home ambulatory. ll1 13:17 Condition: stable 13:17 Discharge instructions given to patient, family, Instructed on discharge instructions, follow up and referral plans. medication usage, Demonstrated understanding of instructions, follow-up care, medications, Prescriptions given X 2. 13:17 Patient left the ED. ll1 Signatures: Mikayla Moreno rg4 Mackenzie Rust RN RN 3 Micky Parks, MINDA RN 1 Britney Green FNP FNP [facility]
--- NOTE | 2023-02-27 12:38 | EDPHYS ---
Physician Documentation [facility] Name: Tanna Ramirez Age: 23 yrs Sex: Female : 2000 Arrival Date: 02/27/2023 Time: 12:16 Bed IW2 Private MD: ED Physician Rod Amaya HPI: 02/27 12:30 This 23 yrs old Female presents to ER via Ambulatory with complaints of Rash. jh7 12:30 The patient's rash thought to be caused by an unknown cause. The rash is located on the jh7 under abdominal fold. The rash can be described as erythematous, raised. Associated signs and symptoms: Pertinent positives: itching, Pain Pertinent negatives: fever, vomiting. Patient reports rash under abdominal fold worsening over the past 3 months. Patient describes the rash as itchy, burning, and painful.. 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 - Social history:: Smoking status: Patient denies any tobacco usage or history of. ROS: 12:30 Constitutional: Negative for fever, chills, and weight loss, Eyes: Negative for injury, jh7 pain, redness, and discharge, Neck: Negative for injury, pain, and swelling, Cardiovascular: Negative for chest pain, palpitations, and edema, Respiratory: Negative for shortness of breath, cough, wheezing, and pleuritic chest pain, Abdomen/GI: Negative for abdominal pain, nausea, vomiting, diarrhea, and constipation, MS/Extremity: Negative for injury and deformity, Neuro: Negative for headache, weakness, numbness, tingling, and seizure. 12:30 Skin: Positive for rash, of the abdomen. 12:30 All other systems are negative. Exam: 12:30 Constitutional: This is a well developed, well nourished patient who is awake, alert, jh7 and in no acute distress. Neck: Trachea midline, no thyromegaly or masses palpated, and no cervical lymphadenopathy. Supple, full range of motion without nuchal rigidity, or vertebral point tenderness. No Meningismus. Cardiovascular: Regular rate and rhythm with a normal S1 and S2. No gallops, murmurs, or rubs. Normal PMI, no JVD. No pulse deficits. Respiratory: Lungs have equal breath sounds bilaterally, clear to auscultation and percussion. No rales, rhonchi or wheezes noted. No increased work of breathing, no retractions or nasal flaring. Abdomen/GI: Soft, non-tender, with normal bowel sounds. No distension or tympany. No guarding or rebound. No evidence of tenderness throughout. Back: No spinal tenderness. No costovertebral tenderness. Full range of motion. Skin: Warm, dry with normal turgor. Normal color with no rashes, no lesions, and no evidence of cellulitis. MS/ Extremity: Pulses equal, no cyanosis. Neurovascular intact. Full, normal range of motion. Neuro: Awake and alert, GCS 15, oriented to person, place, time, and situation. Motor strength 5/5 in all extremities. Sensory grossly intact. Normal gait. 12:30 Skin: consistent with Intertrigo with a few scattered pustules indicating possible secondary bacterial infection. Vital Signs: 12:39 BP 154 / 95; Pulse 79; Resp 18; Temp 97.9; Pulse Ox 99% ; ap3 MDM: 12:18 Patient medically screened. [facility] 12:25 Differential diagnosis: impetigo, Intertrigo. Data reviewed: vital signs, nurses notes. [facility] Historians other than the Patient: Parent: mom. Counseling: I had a detailed discussion with the patient and/or guardian regarding the historical points, exam findings, and any diagnostic results supporting the discharge/admit diagnosis, to return to the emergency department if symptoms worsen or persist or if there are any questions or concerns that arise at home. Administered Medications: No medications were administered Disposition: 16:34 Co-signature as Attending Physician, Rod Amaya DO I was immediately available on-site ms3 in the Emergency Department for consultation in the care of the patient. Disposition Summary: 02/27/23 12:38 Discharge Ordered Location: Home [facility] Problem: new [facility] Symptoms: are unchanged [facility] Condition: Stable [facility] Diagnosis - Erythema intertrigo [facility] Followup: [facility] - With: Private Physician - When: 2 - 3 days - Reason: Recheck today's complaints Discharge Instructions: - Discharge Summary Sheet 7 - Intertrigo [facility] Forms: - Medication Reconciliation Form 7 - Thank You Letter 7 - Antibiotic Education 7 - Patient Portal Instructions 7 - Leadership Thank You Letter 7 Prescriptions: - Clotrimazole 1 % Topical Cream - Apply to affected area 1 application by TOPICAL route every 12 hours for 7 [facility] days; 30 gram; Refills: 0, Product Selection Permitted - Bactrim DS 800-160 mg Oral Tablet - take 1 tablet by ORAL route every 12 hours for 7 days; 14 tablet; Refills: 0, [facility] Product Selection Permitted Signatures: Micky Parks, RN RN ll1 Rod Amaya DO DO ms3 Britney Green, METABOLIC SPECIALIST METABOLIC SPECIALIST [facility]
== END 2023-02-27 13:17 | disposition home or self-care (01) ==
LOC: ER 12:16
DX: L30.4 Erythema intertrigo (principal)
CPT/HCPCS: 99283

== ENCOUNTER → 2023-07-22 | Emergency (ER) | payer OTHER ==
--- OUTSIDE RECORDS SUMMARY | 2023-07-22 09:27 | XMS REPORT | Continuity of Care Document ---
Author Name Unknown Address [address] [facility]. [address] [facility] Address [address] [facility] 1 [address] [place] [address] Care Team Providers Care Screw Machine Adjuster Automatic Name Role Phone Bebeto Armenta Primary Care Physician [phone] Bebeto Armenta Attending Clinician Unavailable Eder GROVES, Sendvíctor K.H. Attending Clinician [phone] MIGNON SOW K.HYohannes Attending Clinician Unavaila mason Doctor Unassigned, [place] Attending Clinician U Viraj Gleason Attending Clinician [phone] Leobardo Pool DO Attending Clinician FOZIA BARTHOLOMEW Attending Clinician Unavailable Nurse, [facility] Attending Clinician Un available Guera Enrique MD Attending Clinician [phone] MIGNON SOW Admitting Clinician Unavaila ble Payers Payer Name Policy Type Policy Number Effective Date Expirati on Date Source [facility] 53 [id number] 2021 00:00:00 [facility] MEDICAID [id number] 2019 00:00:00 Problems Condition Name Condition Details Condition Category Status Onset Date Resolution Date Last Treatment Date Treating Clinician Comments Source [id number] Encounter for Depo-Prove ra contracept ion Problem [facility] [id number] Acquired hypothyroi dism Problem [facility] [id number] Allergic rhinitis, unspecifie d seasonalit y, unspecifie d trigger Problem [facility] [id number] Adult BMI 40.0-44.9 kg/sq m Problem [facility] [id number] Uses Depo-Prove ra as primary control method Problem [facility] [id number] Down's syndrome Problem [facility] [id number] History of open heart surgery Problem [facility] Allergies, Adverse Reactions, Alerts Allergy Name Allergy Type Status Severity Reaction(s) Onset Date Inactive Date Treating Clinician Comments Source NO KNOWN ALLERGIE S Drug Class Active [facility] Social History Social Habit Start Date Stop Date Quantity Comments Source History of Tobacco Use [facility] Sex Assigned At [facility] History SDOH Alcohol Comment [facility] History SDOH Alcohol Std Drinks [facility] History SDOH Alcohol Binge [facility] Exposure to SARS-CoV-2 (event) Not sure [facility] Alcohol intake 2021-07-04 00:00:00 2021-07-04 00:00:00 Lifetime non-drinker (finding) [facility] Tobacco use and exposure 2019-02-19 00:00:00 2019-02-19 00:00:00 Never used [facility] History SDOH Alcohol Frequency 2019-02-19 00:00:00 2019-02-19 00:00:00 1 [facility] Smoking Status Start Date Stop Date Source Unknown if ever smoked Commo n [facility] Never Smoker [facility] Medications Ordered Medication Name Filled Medication Name Start Date Stop Date Current Medication? Ordering Clinician Indication Dosage Frequency Signature (SIG) Comments Components Source Tirosint-SO L 75 MCG/ML Tirosint-SO L 75 MCG/ML 2022-06 00:00: 00 No QD Tirosint-S OL 75 MCG/ML Depo-Shake Backboard Notcher a Depo-Shake Backboard Notcher a 2022-06 00:00: 00 No 150mg [facility] Depo-Shake Backboard Notcher a Depo-Shake Backboard Notcher a 2022-06 00:00: 00 No 150mg [facility] Depo-Shake Backboard Notcher a Depo-Shake Backboard Notcher a 2022-06 00:00: 00 No 150mg [facility] Depo-Shake Backboard Notcher a Depo-Shake Backboard Notcher a 2022-06 0 00:00: 00 No 150mg [facility] Depo-Shake Backboard Notcher a Depo-Shake Backboard Notcher a 2022-06 0 00:00: 00 No 150mg [facility] Depo-Shake Backboard Notcher a Depo-Shake Backboard Notcher a 2022-06 0 00:00: 00 No 150mg [facility] Depo-Shake Backboard Notcher a Depo-Shake Backboard Notcher a 2022-06 0 00:00: 00 No 150mg [facility] Depo-Shake Backboard Notcher a Depo-Shake Backboard Notcher a 2022-06 0 00:00: 00 No 150mg [facility] Depo-Shake Backboard Notcher a Depo-Shake Backboard Notcher a 01-01 00:00: 00 No 150mg [facility] Depo-Shake Backboard Notcher a Depo-Shake Backboard Notcher a 01-01 00:00: 00 No 150mg [facility] Depo-Shake Backboard Notcher a Depo-Shake Backboard Notcher a 01-01 00:00: 00 No 150mg [facility] Depo-Shake Backboard Notcher a Depo-Shake Backboard Notcher a 01-01 00:00: 00 No 150mg [facility] Depo-Shake Backboard Notcher a Depo-Shake Backboard Notcher a 01-01 00:00: 00 No 150mg [facility] Depo-Shake Backboard Notcher a Depo-Shake Backboard Notcher a 01-01 00:00: 00 No 150mg [facility] Depo-Shake Backboard Notcher a Depo-Shake Backboard Notcher a 01-01 00:00: 00 No 150mg [facility] Depo-Shake Backboard Notcher a Depo-Shake Backboard Notcher a 10-02 00:00: 00 No 150mg [facility] Depo-Shake Backboard Notcher a Depo-Shake Backboard Notcher a 10-02 00:00: 00 No 150mg [facility] Depo-Shake Backboard Notcher a Depo-Shake Backboard Notcher a 10-02 00:00: 00 No 150mg [facility] Depo-Shake Backboard Notcher a Depo-Shake Backboard Notcher a 10-02 00:00: 00 No 150mg [facility] Depo-Shake Backboard Notcher a Depo-Shake Backboard Notcher a 10-02 00:00: 00 No 150mg [facility] Depo-Shake Backboard Notcher a Depo-Shake Backboard Notcher a 10-02 00:00: 00 No 150mg [facility] Depo-Shake Backboard Notcher a Depo-Shake Backboard Notcher a 10-02 00:00: 00 No 150mg [facility] Depo-Shake Backboard Notcher a (Medroxypro gesterone ac) Depo-Shake Backboard Notcher a (Medroxypro gesterone ac) 1-05 00:00: 00 No 150mg [facility] Depo-Shake Backboard Notcher a Depo-Shake Backboard Notcher a 07-04 00:00: 00 No 150mg [facility] Depo-Shake Backboard Notcher a Depo-Shake Backboard Notcher a 07-04 00:00: 00 No 150mg [facility] Depo-Shake Backboard Notcher a Depo-Shake Backboard Notcher a 07-04 00:00: 00 No 150mg [facility] Depo-Shake Backboard Notcher a Depo-Shake Backboard Notcher a 07-04 00:00: 00 No 150mg [facility] Depo-Shake Backboard Notcher a Depo-Shake Backboard Notcher a 07-04 00:00: 00 No 150mg [facility] Depo-Shake Backboard Notcher a Depo-Shake Backboard Notcher a 07-04 00:00: 00 No 150mg [facility] Depo-Shake Backboard Notcher a Depo-Shake Backboard Notcher a 07-04 00:00: 00 No 150mg [facility] Depo-Shake Backboard Notcher a (Medroxypro gesterone ac) Depo-Shake Backboard Notcher a (Medroxypro gesterone ac) 2021-06 0 00:00: 00 No 150mg [facility] Depo-Shake Backboard Notcher a (Medroxypro gesterone ac) Depo-Shake Backboard Notcher a (Medroxypro gesterone ac) 2021-06 0 00:00: 00 No 150mg [facility] Depo-Shake Backboard Notcher a (Medroxypro gesterone ac) Depo-Shake Backboard Notcher a (Medroxypro gesterone ac) 2021-06 0 00:00: 00 No 150mg [facility] Depo-Shake Backboard Notcher a Depo-Shake Backboard Notcher a 2021-06 0 00:00: 00 No 150mg [facility] Depo-Shake Backboard Notcher a Depo-Shake Backboard Notcher a 2021-06 0 00:00: 00 No 150mg [facility] Depo-Shake Backboard Notcher a Depo-Shake Backboard Notcher a 2021-06 0 00:00: 00 No 150mg [facility] Depo-Shake Backboard Notcher a Depo-Shake Backboard Notcher a 2021-06 0 00:00: 00 No 150mg [facility] Depo-Shake Backboard Notcher a Depo-Shake Backboard Notcher a 2021-06 0 00:00: 00 No 150mg [facility] Depo-Shake Backboard Notcher a Depo-Shake Backboard Notcher a 2021-06 0 00:00: 00 No 150mg [facility] Depo-Shake Backboard Notcher a Depo-Shake Backboard Notcher a 2021-06 0 00:00: 00 No 150mg [facility] Depo-Shake Backboard Notcher a (Medroxypro gesterone ac) Depo-Shake Backboard Notcher a (Medroxypro gesterone ac) 01-02 00:00: 00 No 150mg [facility] Depo-Shake Backboard Notcher a (Medroxypro gesterone ac) Depo-Shake Backboard Notcher a (Medroxypro gesterone ac) 01-02 00:00: 00 No 150mg [facility] Depo-Shake Backboard Notcher a (Medroxypro gesterone ac) Depo-Shake Backboard Notcher a (Medroxypro gesterone ac) 01-02 00:00: 00 No 150mg [facility] Depo-Shake Backboard Notcher a (Medroxypro gesterone ac) Depo-Shake Backboard Notcher a (Medroxypro gesterone ac) 01-02 00:00: 00 No 150mg [facility] Depo-Shake Backboard Notcher a (Medroxypro gesterone ac) Depo-Shake Backboard Notcher a (Medroxypro gesterone ac) 01-02 00:00: 00 No 150mg [facility] Depo-Shake Backboard Notcher a (Medroxypro gesterone ac) Depo-Shake Backboard Notcher a (Medroxypro gesterone ac) 01-02 00:00: 00 No 150mg [facility] Depo-Shake Backboard Notcher a (Medroxypro gesterone ac) Depo-Shake Backboard Notcher a (Medroxypro gesterone ac) 01-02 00:00: 00 No 150mg [facility] Depo-Shake Backboard Notcher a (Medroxypro gesterone ac) Depo-Shake Backboard Notcher a (Medroxypro gesterone ac) 01-02 00:00: 00 No 150mg [facility] Depo-Shake Backboard Notcher a (Medroxypro gesterone ac) Depo-Shake Backboard Notcher a (Medroxypro gesterone ac) 01-02 00:00: 00 No 150mg [facility] Depo-Shake Backboard Notcher a (Medroxypro gesterone ac) Depo-Shake Backboard Notcher a (Medroxypro gesterone ac) 01-02 00:00: 00 No 150mg [facility] Depo-Shake Backboard Notcher a (Medroxypro gesterone ac) Depo-Shake Backboard Notcher a (Medroxypro gesterone ac) 01-02 00:00: 00 No 150mg [facility] Depo-Shake Backboard Notcher a (Medroxypro gesterone ac) Depo-Shake Backboard Notcher a (Medroxypro gesterone ac) 01-02 00:00: 00 No 150mg [facility] Depo-Shake Backboard Notcher a (Medroxypro gesterone ac) Depo-Shake Backboard Notcher a (Medroxypro gesterone ac) 01-02 00:00: 00 No 150mg [facility] Depo-Shake Backboard Notcher a (Medroxypro gesterone ac) Depo-Shake Backboard Notcher a (Medroxypro gesterone ac) 01-02 00:00: 00 No 150mg [facility] Depo-Shake Backboard Notcher a (Medroxypro gesterone ac) Depo-Shake Backboard Notcher a (Medroxypro gesterone ac) 01-02 00:00: 00 No 150mg [facility] Depo-Shake Backboard Notcher a (Medroxypro gesterone ac) Depo-Shake Backboard Notcher a (Medroxypro gesterone ac) 01-01 00:00: 00 No 150mg [facility] Depo-Shake Backboard Notcher a (Medroxypro gesterone ac) Depo-Shake Backboard Notcher a (Medroxypro gesterone ac) 01-01 00:00: 00 No 150mg [facility] Depo-Shake Backboard Notcher a (Medroxypro gesterone ac) Depo-Shake Backboard Notcher a (Medroxypro gesterone ac) 01-01 00:00: 00 No 150mg [facility] Depo-Shake Backboard Notcher a (Medroxypro gesterone ac) Depo-Shake Backboard Notcher a (Medroxypro gesterone ac) 01-01 00:00: 00 No 150mg [facility] Depo-Shake Backboard Notcher a (Medroxypro gesterone ac) Depo-Shake Backboard Notcher a (Medroxypro gesterone ac) 01-01 00:00: 00 No 150mg [facility] Depo-Shake Backboard Notcher a (Medroxypro gesterone ac) Depo-Shake Backboard Notcher a (Medroxypro gesterone ac) 01-01 00:00: 00 No 150mg [facility] Depo-Shake Backboard Notcher a (Medroxypro gesterone ac) Depo-Shake Backboard Notcher a (Medroxypro gesterone ac) 01-01 00:00: 00 No 150mg [facility] Depo-Shake Backboard Notcher a (Medroxypro gesterone ac) Depo-Shake Backboard Notcher a (Medroxypro gesterone ac) - 00:00: 00 No 150mg [facility] Depo-Shake Backboard Notcher a (Medroxypro gesterone ac) Depo-Shake Backboard Notcher a (Medroxypro gesterone ac) - 00:00: 00 No 150mg [facility] Depo-Shake Backboard Notcher a (Medroxypro gesterone ac) Depo-Shake Backboard Notcher a (Medroxypro gesterone ac) 7 00:00: 00 No 150mg [facility] Depo-Shake Backboard Notcher a (Medroxypro gesterone ac) Depo-Shake Backboard Notcher a (Medroxypro gesterone ac) 7 00:00: 00 No 150mg [facility] Depo-Shake Backboard Notcher a (Medroxypro gesterone ac) Depo-Shake Backboard Notcher a (Medroxypro gesterone ac) 7 00:00: 00 No 150mg [facility] Depo-Shake Backboard Notcher a (Medroxypro gesterone ac) Depo-Shake Backboard Notcher a (Medroxypro gesterone ac) 7 00:00: 00 No 150mg [facility] Depo-Shake Backboard Notcher a (Medroxypro gesterone ac) Depo-Shake Backboard Notcher a (Medroxypro gesterone ac) 7 00:00: 00 No 150mg [facility] Depo-Shake Backboard Notcher a (Medroxypro gesterone ac) Depo-Shake Backboard Notcher a (Medroxypro gesterone ac) 7 00:00: 00 No 150mg [facility] Ketoconazol e 2 % Ketoconazol e 2 % 6-17 00:00: 00 12-28 00:00 :00 No 1{appli cation} QD Ketoconazo le 2 % Depo-Shake Backboard Notcher a (Medroxypro gesterone ac) Depo-Shake Backboard Notcher a (Medroxypro gesterone ac) 4-04 00:00: 00 No 150mg [facility] Depo-Shake Backboard Notcher a (Medroxypro gesterone ac) Depo-Shake Backboard Notcher a (Medroxypro gesterone ac) 4-04 00:00: 00 No 150mg [facility] Depo-Shake Backboard Notcher a (Medroxypro gesterone ac) Depo-Shake Backboard Notcher a (Medroxypro gesterone ac) 0 - 00:00: 00 No 150mg [facility] Depo-Shake Backboard Notcher a (Medroxypro gesterone ac) Depo-Shake Backboard Notcher a (Medroxypro gesterone ac) 0 10-01 00:00: 00 No 150mg [facility] Depo-Shake Backboard Notcher a (Medroxypro gesterone ac) Depo-Shake Backboard Notcher a (Medroxypro gesterone ac) 0 10-01 00:00: 00 No 150mg [facility] Depo-Shake Backboard Notcher a (Medroxypro gesterone ac) Depo-Shake Backboard Notcher a (Medroxypro gesterone ac) 0 10-01 00:00: 00 No 150mg [facility] Depo-Shake Backboard Notcher a (Medroxypro gesterone ac) Depo-Shake Backboard Notcher a (Medroxypro gesterone ac) 0 10-01 00:00: 00 No 150mg [facility] Depo-Shake Backboard Notcher a (Medroxypro gesterone ac) Depo-Shake Backboard Notcher a (Medroxypro gesterone ac) 0 10-01 00:00: 00 No 150mg [facility] Depo-Shake Backboard Notcher a (Medroxypro gesterone ac) Depo-Shake Backboard Notcher a (Medroxypro gesterone ac) 0 10-01 00:00: 00 No 150mg [facility] Depo-Shake Backboard Notcher a (Medroxypro gesterone ac) Depo-Shake Backboard Notcher a (Medroxypro gesterone ac) 0 - 00:00: 00 No 150mg [facility] Depo-Shake Backboard Notcher a (Medroxypro gesterone ac) Depo-Shake Backboard Notcher a (Medroxypro gesterone ac) 0 4- 00:00: 00 No 150mg [facility] Depo-Shake Backboard Notcher a (Medroxypro gesterone ac) Depo-Shake Backboard Notcher a (Medroxypro gesterone ac) 4- 00:00: 00 No 150mg [facility] Depo-Shake Backboard Notcher a (Medroxypro gesterone ac) Depo-Shake Backboard Notcher a (Medroxypro gesterone ac) 4- 00:00: 00 No 150mg [facility] Depo-Shake Backboard Notcher a (Medroxypro gesterone ac) Depo-Shake Backboard Notcher a (Medroxypro gesterone ac) 10-01 00:00: 00 No 150mg [facility] Depo-Shake Backboard Notcher a (Medroxypro gesterone ac) Depo-Shake Backboard Notcher a (Medroxypro gesterone ac) 4 00:00: 00 No 150mg [facility] Depo-Shake Backboard Notcher a (Medroxypro gesterone ac) Depo-Shake Backboard Notcher a (Medroxypro gesterone ac) 10-01 00:00: 00 No 150mg [facility] Depo-Shake Backboard Notcher a (Medroxypro gesterone ac) Depo-Shake Backboard Notcher a (Medroxypro gesterone ac) 10-01 00:00: 00 No 150mg [facility] montelukast sodium (SINGULAIR ORAL) 07-04 13:41: 41 Yes Take by mouth. [facility] montelukast sodium (SINGULAIR ORAL) 07-04 13:41: 41 Yes Take by mouth. [facility] montelukast sodium (SINGULAIR ORAL) 07-04 13:41: 41 Yes Take by mouth. [facility] montelukast sodium (SINGULAIR ORAL) 07-04 13:41: 41 Yes Take by mouth. [facility] Depo-Shake Backboard Notcher a (Medroxypro gesterone ac) Depo-Shake Backboard Notcher a (Medroxypro gesterone ac) - 00:00: 00 No 150mg [facility] Depo-Shake Backboard Notcher a (Medroxypro gesterone ac) Depo-Shake Backboard Notcher a (Medroxypro gesterone ac) 07-02 00:00: 00 No 150mg [facility] Depo-Shake Backboard Notcher a (Medroxypro gesterone ac) Depo-Shake Backboard Notcher a (Medroxypro gesterone ac) 07-02 00:00: 00 No 150mg [facility] Depo-Shake Backboard Notcher a (Medroxypro gesterone ac) Depo-Shake Backboard Notcher a (Medroxypro gesterone ac) 07-02 00:00: 00 No 150mg [facility] Depo-Shake Backboard Notcher a (Medroxypro gesterone ac) Depo-Shake Backboard Notcher a (Medroxypro gesterone ac) - 00:00: 00 No 150mg [facility] Depo-Shake Backboard Notcher a (Medroxypro gesterone ac) Depo-Shake Backboard Notcher a (Medroxypro gesterone ac) 07-02 00:00: 00 No 150mg [facility] Depo-Shake Backboard Notcher a (Medroxypro gesterone ac) Depo-Shake Backboard Notcher a (Medroxypro gesterone ac) - 00:00: 00 No 150mg [facility] Depo-Shake Backboard Notcher a (Medroxypro gesterone ac) Depo-Shake Backboard Notcher a (Medroxypro gesterone ac) - 00:00: 00 No 150mg [facility] Depo-Shake Backboard Notcher a (Medroxypro gesterone ac) Depo-Shake Backboard Notcher a (Medroxypro gesterone ac) - 00:00: 00 No 150mg [facility] Depo-Shake Backboard Notcher a (Medroxypro gesterone ac) Depo-Shake Backboard Notcher a (Medroxypro gesterone ac) - 00:00: 00 No 150mg [facility] Depo-Shake Backboard Notcher a (Medroxypro gesterone ac) Depo-Shake Backboard Notcher a (Medroxypro gesterone ac) - 00:00: 00 No 150mg [facility] Depo-Shake Backboard Notcher a (Medroxypro gesterone ac) Depo-Shake Backboard Notcher a (Medroxypro gesterone ac) - 00:00: 00 No 150mg [facility] Depo-Shake Backboard Notcher a (Medroxypro gesterone ac) Depo-Shake Backboard Notcher a (Medroxypro gesterone ac) - 00:00: 00 No 150mg [facility] Depo-Shake Backboard Notcher a (Medroxypro gesterone ac) Depo-Shake Backboard Notcher a (Medroxypro gesterone ac) - 00:00: 00 No 150mg [facility] Depo-Shake Backboard Notcher a (Medroxypro gesterone ac) Depo-Shake Backboard Notcher a (Medroxypro gesterone ac) - 00:00: 00 No 150mg [facility] Depo-Shake Backboard Notcher a (Medroxypro gesterone ac) Depo-Shake Backboard Notcher a (Medroxypro gesterone ac) - 00:00: 00 No 150mg [facility] Depo-Shake Backboard Notcher a (Medroxypro gesterone ac) Depo-Shake Backboard Notcher a (Medroxypro gesterone ac) - 00:00: 00 No 150mg [facility] Depo-Shake Backboard Notcher a (Medroxypro gesterone ac) Depo-Shake Backboard Notcher a (Medroxypro gesterone ac) - 00:00: 00 No 150mg [facility] Depo-Shake Backboard Notcher a (Medroxypro gesterone ac) Depo-Shake Backboard Notcher a (Medroxypro gesterone ac) 02-21 00:00: 00 No 150mg [facility] Depo-Shake Backboard Notcher a (Medroxypro gesterone ac) Depo-Shake Backboard Notcher a (Medroxypro gesterone ac) 02-21 00:00: 00 No 150mg [facility] Depo-Shake Backboard Notcher a (Medroxypro gesterone ac) Depo-Shake Backboard Notcher a (Medroxypro gesterone ac) 02-21 00:00: 00 No 150mg [facility] Depo-Shake Backboard Notcher a (Medroxypro gesterone ac) Depo-Shake Backboard Notcher a (Medroxypro gesterone ac) 02-21 00:00: 00 No 150mg [facility] Depo-Shake Backboard Notcher a (Medroxypro gesterone ac) Depo-Shake Backboard Notcher a (Medroxypro gesterone ac) 02-21 00:00: 00 No 150mg [facility] Depo-Shake Backboard Notcher a (Medroxypro gesterone ac) Depo-Shake Backboard Notcher a (Medroxypro gesterone ac) 02-21 00:00: 00 No 150mg [facility] Depo-Shake Backboard Notcher a (Medroxypro gesterone ac) Depo-Shake Backboard Notcher a (Medroxypro gesterone ac) 02-21 00:00: 00 No 150mg [facility] Depo-Shake Backboard Notcher a (Medroxypro gesterone ac) Depo-Shake Backboard Notcher a (Medroxypro gesterone ac) 02-21 00:00: 00 No 150mg [facility] Depo-Shake Backboard Notcher a (Medroxypro gesterone ac) Depo-Shake Backboard Notcher a (Medroxypro gesterone ac) 02-21 00:00: 00 No 150mg [facility] Depo-Shake Backboard Notcher a (Medroxypro gesterone ac) Depo-Shake Backboard Notcher a (Medroxypro gesterone ac) 02-21 00:00: 00 No 150mg [facility] Depo-Shake Backboard Notcher a (Medroxypro gesterone ac) Depo-Shake Backboard Notcher a (Medroxypro gesterone ac) 02-21 00:00: 00 No 150mg [facility] Depo-Shake Backboard Notcher a (Medroxypro gesterone ac) Depo-Shake Backboard Notcher a (Medroxypro gesterone ac) 02-21 00:00: 00 No 150mg [facility] Depo-Shake Backboard Notcher a (Medroxypro gesterone ac) Depo-Shake Backboard Notcher a (Medroxypro gesterone ac) 02-21 00:00: 00 No 150mg [facility] Depo-Shake Backboard Notcher a (Medroxypro gesterone ac) Depo-Shake Backboard Notcher a (Medroxypro gesterone ac) 02-21 00:00: 00 No 150mg [facility] Depo-Shake Backboard Notcher a (Medroxypro gesterone ac) Depo-Shake Backboard Notcher a (Medroxypro gesterone ac) 02-21 00:00: 00 No 150mg [facility] Depo-Shake Backboard Notcher a (Medroxypro gesterone ac) Depo-Shake Backboard Notcher a (Medroxypro gesterone ac) 02-21 00:00: 00 No 150mg [facility] Depo-Shake Backboard Notcher a (Medroxypro gesterone ac) Depo-Shake Backboard Notcher a (Medroxypro gesterone ac) 02-21 00:00: 00 No 150mg [facility] Depo-Shake Backboard Notcher a (Medroxypro gesterone ac) Depo-Shake Backboard Notcher a (Medroxypro gesterone ac) 02-21 00:00: 00 No 150mg [facility] Depo-Shake Backboard Notcher a (Medroxypro gesterone ac) Depo-Shake Backboard Notcher a (Medroxypro gesterone ac) 10-24 00:00: 00 No 150mg [facility] Depo-Shake Backboard Notcher a (Medroxypro gesterone ac) Depo-Shake Backboard Notcher a (Medroxypro gesterone ac) 10-24 00:00: 00 No 150mg [facility] Depo-Shake Backboard Notcher a (Medroxypro gesterone ac) Depo-Shake Backboard Notcher a (Medroxypro gesterone ac) 10-24 00:00: 00 No 150mg [facility] Depo-Shake Backboard Notcher a (Medroxypro gesterone ac) Depo-Shake Backboard Notcher a (Medroxypro gesterone ac) 10-24 00:00: 00 No 150mg [facility] Depo-Shake Backboard Notcher a (Medroxypro gesterone ac) Depo-Shake Backboard Notcher a (Medroxypro gesterone ac) 10-24 00:00: 00 No 150mg [facility] Depo-Shake Backboard Notcher a (Medroxypro gesterone ac) Depo-Shake Backboard Notcher a (Medroxypro gesterone ac) 10-24 00:00: 00 No 150mg [facility] Depo-Shake Backboard Notcher a (Medroxypro gesterone ac) Depo-Shake Backboard Notcher a (Medroxypro gesterone ac) 10-24 00:00: 00 No 150mg [facility] Depo-Shake Backboard Notcher a (Medroxypro gesterone ac) Depo-Shake Backboard Notcher a (Medroxypro gesterone ac) 10-24 00:00: 00 No 150mg [facility] Depo-Shake Backboard Notcher a (Medroxypro gesterone ac) Depo-Shake Backboard Notcher a (Medroxypro gesterone ac) 10-24 00:00: 00 No 150mg [facility] Depo-Shake Backboard Notcher a (Medroxypro gesterone ac) Depo-Shake Backboard Notcher a (Medroxypro gesterone ac) 10-24 00:00: 00 No 150mg [facility] Depo-Shake Backboard Notcher a (Medroxypro gesterone ac) Depo-Shake Backboard Notcher a (Medroxypro gesterone ac) 10-24 00:00: 00 No 150mg [facility] Depo-Shake Backboard Notcher a (Medroxypro gesterone ac) Depo-Shake Backboard Notcher a (Medroxypro gesterone ac) 10-24 00:00: 00 No 150mg [facility] Depo-Shake Backboard Notcher a (Medroxypro gesterone ac) Depo-Shake Backboard Notcher a (Medroxypro gesterone ac) 10-24 00:00: 00 No 150mg [facility] Depo-Shake Backboard Notcher a (Medroxypro gesterone ac) Depo-Shake Backboard Notcher a (Medroxypro gesterone ac) 10-24 00:00: 00 No 150mg [facility] Depo-Shake Backboard Notcher a (Medroxypro gesterone ac) Depo-Shake Backboard Notcher a (Medroxypro gesterone ac) 10-24 00:00: 00 No 150mg [facility] Depo-Shake Backboard Notcher a (Medroxypro gesterone ac) Depo-Shake Backboard Notcher a (Medroxypro gesterone ac) 10-24 00:00: 00 No 150mg [facility] Depo-Shake Backboard Notcher a (Medroxypro gesterone ac) Depo-Shake Backboard Notcher a (Medroxypro gesterone ac) 10-24 00:00: 00 No 150mg [facility] Depo-Shake Backboard Notcher a (Medroxypro gesterone ac) Depo-Shake Backboard Notcher a (Medroxypro gesterone ac) 10-24 00:00: 00 No 150mg [facility] [place] Depo-Shake Backboard Notcher a (Medroxypro gesterone ac) Depo-Shake Backboard Notcher a (Medroxypro gesterone ac) 0 02-22 00:00: 00 No 150mg [facility] Depo-Shake Backboard Notcher a (Medroxypro gesterone ac) Depo-Shake Backboard Notcher a (Medroxypro gesterone ac) 0 02-22 00:00: 00 No 150mg [facility] Depo-Shake Backboard Notcher a (Medroxypro gesterone ac) Depo-Shake Backboard Notcher a (Medroxypro gesterone ac) 0 02-22 00:00: 00 No 150mg [facility] Depo-Shake Backboard Notcher a (Medroxypro gesterone ac) Depo-Shake Backboard Notcher a (Medroxypro gesterone ac) 0 02-22 00:00: 00 No 150mg [facility] Depo-Shake Backboard Notcher a (Medroxypro gesterone ac) Depo-Shake Backboard Notcher a (Medroxypro gesterone ac) 0 02-22 00:00: 00 No 150mg [facility] Depo-Shake Backboard Notcher a (Medroxypro gesterone ac) Depo-Shake Backboard Notcher a (Medroxypro gesterone ac) 0 02-22 00:00: 00 No 150mg [facility] Depo-Shake Backboard Notcher a (Medroxypro gesterone ac) Depo-Shake Backboard Notcher a (Medroxypro gesterone ac) 0 02-22 00:00: 00 No 150mg [facility] Depo-Shake Backboard Notcher a (Medroxypro gesterone ac) Depo-Shake Backboard Notcher a (Medroxypro gesterone ac) 0 02-22 00:00: 00 No 150mg [facility] Depo-Shake Backboard Notcher a (Medroxypro gesterone ac) Depo-Shake Backboard Notcher a (Medroxypro gesterone ac) 0 02-22 00:00: 00 No 150mg [facility] Depo-Shake Backboard Notcher a (Medroxypro gesterone ac) Depo-Shake Backboard Notcher a (Medroxypro gesterone ac) 0 02-22 00:00: 00 No 150mg [facility] Depo-Shake Backboard Notcher a (Medroxypro gesterone ac) Depo-Shake Backboard Notcher a (Medroxypro gesterone ac) 0 02-22 00:00: 00 No 150mg [facility] Depo-Shake Backboard Notcher a (Medroxypro gesterone ac) Depo-Shake Backboard Notcher a (Medroxypro gesterone ac) 0 02-22 00:00: 00 No 150mg [facility] Depo-Shake Backboard Notcher a (Medroxypro gesterone ac) Depo-Shake Backboard Notcher a (Medroxypro gesterone ac) 0 02-22 00:00: 00 No 150mg [facility] Depo-Shake Backboard Notcher a (Medroxypro gesterone ac) Depo-Shake Backboard Notcher a (Medroxypro gesterone ac) 02-22 00:00: 00 No 150mg [facility] Depo-Shake Backboard Notcher a (Medroxypro gesterone ac) Depo-Shake Backboard Notcher a (Medroxypro gesterone ac) 0 02-22 00:00: 00 No 150mg [facility] Depo-Shake Backboard Notcher a (Medroxypro gesterone ac) Depo-Shake Backboard Notcher a (Medroxypro gesterone ac) 0 02-22 00:00: 00 No 150mg [facility] Depo-Shake Backboard Notcher a (Medroxypro gesterone ac) Depo-Shake Backboard Notcher a (Medroxypro gesterone ac) 0 02-22 00:00: 00 No 150mg [facility] Depo-Shake Backboard Notcher a (Medroxypro gesterone ac) Depo-Shake Backboard Notcher a (Medroxypro gesterone ac) 0 02-22 00:00: 00 No 150mg [facility] Depo-Shake Backboard Notcher a (Medroxypro gesterone ac) Depo-Shake Backboard Notcher a (Medroxypro gesterone ac) 0 11-22 00:00: 00 No 150mg [facility] Depo-Shake Backboard Notcher a (Medroxypro gesterone ac) Depo-Shake Backboard Notcher a (Medroxypro gesterone ac) 0 11-22 00:00: 00 No 150mg [facility] Depo-Shake Backboard Notcher a (Medroxypro gesterone ac) Depo-Shake Backboard Notcher a (Medroxypro gesterone ac) 0 11-22 00:00: 00 No 150mg [facility] Depo-Shake Backboard Notcher a (Medroxypro gesterone ac) Depo-Shake Backboard Notcher a (Medroxypro gesterone ac) 0 11-22 00:00: 00 No 150mg [facility] Depo-Shake Backboard Notcher a (Medroxypro gesterone ac) Depo-Shake Backboard Notcher a (Medroxypro gesterone ac) 0 11-22 00:00: 00 No 150mg [facility] Depo-Shake Backboard Notcher a (Medroxypro gesterone ac) Depo-Shake Backboard Notcher a (Medroxypro gesterone ac) 0 11-22 00:00: 00 No 150mg [facility] Depo-Shake Backboard Notcher a (Medroxypro gesterone ac) Depo-Shake Backboard Notcher a (Medroxypro gesterone ac) 0 11-22 00:00: 00 No 150mg [facility] Depo-Shake Backboard Notcher a (Medroxypro gesterone ac) Depo-Shake Backboard Notcher a (Medroxypro gesterone ac) 0 11-22 00:00: 00 No 150mg [facility] Depo-Shake Backboard Notcher a (Medroxypro gesterone ac) Depo-Shake Backboard Notcher a (Medroxypro gesterone ac) 0 11-22 00:00: 00 No 150mg [facility] Depo-Shake Backboard Notcher a (Medroxypro gesterone ac) Depo-Shake Backboard Notcher a (Medroxypro gesterone ac) 11-22 00:00: 00 No 150mg [facility] Depo-Shake Backboard Notcher a (Medroxypro gesterone ac) Depo-Shake Backboard Notcher a (Medroxypro gesterone ac) 11-22 00:00: 00 No 150mg [facility] Depo-Shake Backboard Notcher a (Medroxypro gesterone ac) Depo-Shake Backboard Notcher a (Medroxypro gesterone ac) 11-22 00:00: 00 No 150mg [facility] Depo-Shake Backboard Notcher a (Medroxypro gesterone ac) Depo-Shake Backboard Notcher a (Medroxypro gesterone ac) 11-22 00:00: 00 No 150mg [facility] Depo-Shake Backboard Notcher a (Medroxypro gesterone ac) Depo-Shake Backboard Notcher a (Medroxypro gesterone ac) 11-22 00:00: 00 No 150mg [facility] Depo-Shake Backboard Notcher a (Medroxypro gesterone ac) Depo-Shake Backboard Notcher a (Medroxypro gesterone ac) 11-22 00:00: 00 No 150mg [facility] Depo-Shake Backboard Notcher a (Medroxypro gesterone ac) Depo-Shake Backboard Notcher a (Medroxypro gesterone ac) 11-22 00:00: 00 No 150mg [facility] Depo-Shake Backboard Notcher a (Medroxypro gesterone ac) Depo-Shake Backboard Notcher a (Medroxypro gesterone ac) 11-22 00:00: 00 No 150mg [facility] Depo-Shake Backboard Notcher a (Medroxypro gesterone ac) Depo-Shake Backboard Notcher a (Medroxypro gesterone ac) 11-22 00:00: 00 No 150mg [facility] medroxyprog esterone ac medroxyprog esterone ac 2020-0 2-25 00:00: 00 No 150mL [facility] [place] medroxyprog esterone ac medroxyprog esterone ac 2020-0 2-25 00:00: 00 No 150mL [facility] [place] medroxyprog esterone ac medroxyprog esterone ac 2020-0 2-25 00:00: 00 No 150mL [facility] [place] medroxyprog esterone ac medroxyprog esterone ac 2020-0 2-25 00:00: 00 No 150mL [facility] [place] medroxyprog esterone ac medroxyprog esterone ac 2020-0 2-25 00:00: 00 No 150mL [facility] [place] medroxyprog esterone ac medroxyprog esterone ac 2020-0 2-25 00:00: 00 No 150mL [facility] medroxyprog esterone ac medroxyprog esterone ac 2020-0 2-25 00:00: 00 No 150mL [facility] medroxyprog esterone ac medroxyprog esterone ac 2020-0 2-25 00:00: 00 No 150mL [facility] medroxyprog esterone ac medroxyprog esterone ac 2020-0 2-25 00:00: 00 No 150mL [facility] medroxyprog esterone ac medroxyprog esterone ac 2020-0 2-25 00:00: 00 No 150mL [facility] medroxyprog esterone ac medroxyprog esterone ac 2020-0 2-25 00:00: 00 No 150mL [facility] [place] medroxyprog esterone ac medroxyprog esterone ac 2020-0 2-25 00:00: 00 No 150mL [facility] [place] medroxyprog esterone ac medroxyprog esterone ac 2020-0 2-25 00:00: 00 No 150mL [facility] [place] medroxyprog esterone ac medroxyprog esterone ac 2020-0 2-25 00:00: 00 No 150mL [facility] medroxyprog esterone ac medroxyprog esterone ac 2019-0 2-25 00:00: 00 No 150mL [facility] medroxyprog esterone ac medroxyprog esterone ac 2019-0 08-24 00:00: 00 No 150mL [facility] medroxyprog esterone ac medroxyprog esterone ac 2019-0 2-25 00:00: 00 No 150mL [facility] medroxyprog esterone ac medroxyprog esterone ac 2019-0 25 00:00: 00 No 150mL [facility] Depo-Shake Backboard Notcher a (Medroxypro gesterone ac) Depo-Shake Backboard Notcher a (Medroxypro gesterone ac) 2018-06 00:00: 00 No 150mg [facility] Depo-Shake Backboard Notcher a (Medroxypro gesterone ac) Depo-Shake Backboard Notcher a (Medroxypro gesterone ac) 2018-06 00:00: 00 No 150mg [facility] Depo-Shake Backboard Notcher a (Medroxypro gesterone ac) Depo-Shake Backboard Notcher a (Medroxypro gesterone ac) 2018-06 00:00: 00 No 150mg [facility] Depo-Shake Backboard Notcher a (Medroxypro gesterone ac) Depo-Shake Backboard Notcher a (Medroxypro gesterone ac) 2018-06 00:00: 00 No 150mg [facility] Depo-Shake Backboard Notcher a (Medroxypro gesterone ac) Depo-Shake Backboard Notcher a (Medroxypro gesterone ac) 2018-06 00:00: 00 No 150mg [facility] Depo-Shake Backboard Notcher a (Medroxypro gesterone ac) Depo-Shake Backboard Notcher a (Medroxypro gesterone ac) 2018-06 00:00: 00 No 150mg [facility] Depo-Shake Backboard Notcher a (Medroxypro gesterone ac) Depo-Shake Backboard Notcher a (Medroxypro gesterone ac) 2018-06 00:00: 00 No 150mg [facility] Depo-Shake Backboard Notcher a (Medroxypro gesterone ac) Depo-Shake Backboard Notcher a (Medroxypro gesterone ac) 2018-06 00:00: 00 No 150mg [facility] Depo-Shake Backboard Notcher a (Medroxypro gesterone ac) Depo-Shake Backboard Notcher a (Medroxypro gesterone ac) 2018-06 00:00: 00 No 150mg [facility] Depo-Shake Backboard Notcher a (Medroxypro gesterone ac) Depo-Shake Backboard Notcher a (Medroxypro gesterone ac) 2018-06 00:00: 00 No 150mg [facility] Depo-Shake Backboard Notcher a (Medroxypro gesterone ac) Depo-Shake Backboard Notcher a (Medroxypro gesterone ac) 2018-06 00:00: 00 No 150mg [facility] Depo-Shake Backboard Notcher a (Medroxypro gesterone ac) Depo-Shake Backboard Notcher a (Medroxypro gesterone ac) 2018-06 00:00: 00 No 150mg [facility] Depo-Shake Backboard Notcher a (Medroxypro gesterone ac) Depo-Shake Backboard Notcher a (Medroxypro gesterone ac) 2018-06 00:00: 00 No 150mg [facility] Depo-Shake Backboard Notcher a (Medroxypro gesterone ac) Depo-Shake Backboard Notcher a (Medroxypro gesterone ac) 2018-06 00:00: 00 No 150mg [facility] Depo-Shake Backboard Notcher a (Medroxypro gesterone ac) Depo-Shake Backboard Notcher a (Medroxypro gesterone ac) 2018-06 00:00: 00 No 150mg [facility] Depo-Shake Backboard Notcher a (Medroxypro gesterone ac) Depo-Shake Backboard Notcher a (Medroxypro gesterone ac) 2018-06 00:00: 00 No 150mg [facility] [place] Depo-Shake Backboard Notcher a (Medroxypro gesterone ac) Depo-Shake Backboard Notcher a (Medroxypro gesterone ac) 2018-06 00:00: 00 No 150mg [facility] [place] Depo-Shake Backboard Notcher a (Medroxypro gesterone ac) Depo-Shake Backboard Notcher a (Medroxypro gesterone ac) 2018-06 00:00: 00 No 150mg [facility] Montelukast Sodium Montelukast Sodium Yes Bebeto Armenta 1 tablet [facility] Montelukast Sodium 10 MG Montelukast Sodium 10 MG No Montelukas t Sodium 10 MG Montelukast Sodium 10 MG Montelukast Sodium 10 MG No Montelukas t Sodium 10 MG Montelukast Sodium 10 MG Montelukast Sodium 10 MG No Montelukas t Sodium 10 MG methylPREDN ISolone 4 MG methylPREDN ISolone 4 MG No QD methylPRED NISolone 4 MG Pseudoeph-B romphen-DM 30-2-10 MG/5ML Pseudoeph-B romphen-DM 30-2-10 MG/5ML No 5{ml_as _needed } QID Pseudoeph- Bromphen-D M 30-2-10 MG/5ML Montelukast Sodium 10 MG Montelukast Sodium 10 MG No Montelukas t Sodium 10 MG methylPREDN ISolone 4 MG methylPREDN ISolone 4 MG No QD methylPRED NISolone 4 MG Pseudoeph-B romphen-DM 30-2-10 MG/5ML Pseudoeph-B romphen-DM 30-2-10 MG/5ML No 5{ml_as _needed } QID Pseudoeph- Bromphen-D M 30-2-10 MG/5ML Montelukast Sodium 10 MG Montelukast Sodium 10 MG No Montelukas t Sodium 10 MG methylPREDN ISolone 4 MG methylPREDN ISolone 4 MG No QD methylPRED NISolone 4 MG Montelukast Sodium 10 MG Montelukast Sodium 10 MG No Montelukas t Sodium 10 MG Pseudoeph-B romphen-DM 30-2-10 MG/5ML Pseudoeph-B romphen-DM 30-2-10 MG/5ML No 5{ml_as _needed } QID Pseudoeph- Bromphen-D M 30-2-10 MG/5ML methylPREDN ISolone 4 MG methylPREDN ISolone 4 MG No QD methylPRED NISolone 4 MG Montelukast Sodium 10 MG Montelukast Sodium 10 MG No 1{table t} QD Montelukas t Sodium 10 MG Pseudoeph-B romphen-DM 30-2-10 MG/5ML Pseudoeph-B romphen-DM 30-2-10 MG/5ML No 5{ml_as _needed } QID Pseudoeph- Bromphen-D M 30-2-10 MG/5ML methylPREDN ISolone 4 MG methylPREDN ISolone 4 MG No QD methylPRED NISolone 4 MG Montelukast Sodium 10 MG Montelukast Sodium 10 MG No 1{table t} QD Montelukas t Sodium 10 MG Pseudoeph-B romphen-DM 30-2-10 MG/5ML Pseudoeph-B romphen-DM 30-2-10 MG/5ML No 5{ml_as _needed } QID Pseudoeph- Bromphen-D M 30-2-10 MG/5ML Levothyroxi ne Sodium 50 MCG Levothyroxi ne Sodium 50 MCG No QD Levothyrox ine Sodium 50 MCG Levothyroxi ne Sodium 75 MCG Levothyroxi ne Sodium 75 MCG No QD Levothyrox ine Sodium 75 MCG Montelukast Sodium 10 MG Montelukast Sodium 10 MG No 1{table t} QD Montelukas t Sodium 10 MG Levothyroxi ne Sodium 50 MCG Levothyroxi ne Sodium 50 MCG No QD Levothyrox ine Sodium 50 MCG Levothyroxi ne Sodium 75 MCG Levothyroxi ne Sodium 75 MCG No QD Levothyrox ine Sodium 75 MCG Montelukast Sodium 10 MG Montelukast Sodium 10 MG No 1{table t} QD Montelukas t Sodium 10 MG Levothyroxi ne Sodium 50 MCG Levothyroxi ne Sodium 50 MCG No QD Levothyrox ine Sodium 50 MCG Levothyroxi ne Sodium 75 MCG Levothyroxi ne Sodium 75 MCG No QD Levothyrox ine Sodium 75 MCG Montelukast Sodium 10 MG Montelukast Sodium 10 MG No 1{table t} QD Montelukas t Sodium 10 MG Levothyroxi ne Sodium 50 MCG Levothyroxi ne Sodium 50 MCG No QD Levothyrox ine Sodium 50 MCG Levothyroxi ne Sodium 75 MCG Levothyroxi ne Sodium 75 MCG No QD Levothyrox ine Sodium 75 MCG Montelukast Sodium 10 MG Montelukast Sodium 10 MG No 1{table t} QD Montelukas t Sodium 10 MG methylPREDN ISolone 4 MG methylPREDN ISolone 4 MG No QD methylPRED NISolone 4 MG Pseudoeph-B romphen-DM 30-2-10 MG/5ML Pseudoeph-B romphen-DM 30-2-10 MG/5ML No 5{ml_as _needed } QID Pseudoeph- Bromphen-D M 30-2-10 MG/5ML Levothyroxi ne Sodium 50 MCG Levothyroxi ne Sodium 50 MCG No QD Levothyrox ine Sodium 50 MCG Levothyroxi ne Sodium 75 MCG Levothyroxi ne Sodium 75 MCG No QD Levothyrox ine Sodium 75 MCG Montelukast Sodium 10 MG Montelukast Sodium 10 MG No 1{table t} QD Montelukas t Sodium 10 MG Montelukast Sodium 10 MG Montelukast Sodium 10 MG No Montelukas t Sodium 10 MG Levothyroxi ne Sodium 50 MCG Levothyroxi ne Sodium 50 MCG No QD Levothyrox ine Sodium 50 MCG Levothyroxi ne Sodium 75 MCG Levothyroxi ne Sodium 75 MCG No QD Levothyrox ine Sodium 75 MCG Montelukast Sodium 10 MG Montelukast Sodium 10 MG No 1{table t} QD Montelukas t Sodium 10 MG Montelukast Sodium 10 MG Montelukast Sodium 10 MG No 1{table t} QD Montelukas t Sodium 10 MG Montelukast Sodium 10 MG Montelukast Sodium 10 MG No 1{table t} QD Montelukas t Sodium 10 MG methylPREDN ISolone 4 MG methylPREDN ISolone 4 MG No QD methylPRED NISolone 4 MG Pseudoeph-B romphen-DM 30-2-10 MG/5ML Pseudoeph-B romphen-DM 30-2-10 MG/5ML No 5{ml_as _needed } QID Pseudoeph- Bromphen-D M 30-2-10 MG/5ML Montelukast Sodium 10 MG Montelukast Sodium 10 MG No Montelukas t Sodium 10 MG Montelukast Sodium 10 MG Montelukast Sodium 10 MG No 1{table t} QD Montelukas t Sodium 10 MG Montelukast Sodium 10 MG Montelukast Sodium 10 MG No Montelukas t Sodium 10 MG Immunizations Ordered Immunization Name Filled Immunization Name Date Status Comments Source Flucelvax - single dose syringe Flucelvax - single dose syringe 2022-04-04 13:57:00 Completed [facility] Flucelvax - single dose syringe Flucelvax - single dose syringe 2022-04-04 13:57:00 Completed [facility] Flucelvax - single dose syringe Flucelvax - single dose syringe 2022-04-04 13:57:00 Completed [facility] Moderna COVID-19 Vaccine Moderna COVID-19 Vaccine 2020-10-12 17:24:00 Completed [facility] Moderna COVID-19 Vaccine Moderna COVID-19 Vaccine 2020-10-12 17:24:00 Completed [facility] Moderna COVID-19 Vaccine Moderna COVID-19 Vaccine 2020-10-12 17:24:00 Completed [facility] Moderna COVID-19 Vaccine Moderna COVID-19 Vaccine 2020-10-12 17:24:00 Completed [facility] Moderna COVID-19 Vaccine Moderna COVID-19 Vaccine 2020-10-12 17:24:00 Completed [facility] Moderna COVID-19 Vaccine Moderna COVID-19 Vaccine 2020-10-12 17:24:00 Completed [facility] Moderna COVID-19 Vaccine Moderna COVID-19 Vaccine 2020-10-12 17:24:00 Completed [facility] Moderna COVID-19 Vaccine Moderna COVID-19 Vaccine 2020-10-12 17:24:00 Completed [facility] Moderna COVID-19 Vaccine Moderna COVID-19 Vaccine 2020-10-12 17:24:00 Completed [facility] Moderna COVID-19 Vaccine Moderna COVID-19 Vaccine 2020-10-12 17:24:00 Completed [facility] Moderna COVID-19 Vaccine Moderna COVID-19 Vaccine 2020-10-12 17:24:00 Completed [facility] Moderna COVID-19 Vaccine Moderna COVID-19 Vaccine 2020-10-12 17:24:00 Completed [facility] Moderna COVID-19 Vaccine Moderna COVID-19 Vaccine 2020-09-14 17:24:00 Completed [facility] Moderna COVID-19 Vaccine Moderna COVID-19 Vaccine 2020-09-14 17:24:00 Completed [facility] Moderna COVID-19 Vaccine Moderna COVID-19 Vaccine 2020-09-14 17:24:00 Completed [facility] Moderna COVID-19 Vaccine Moderna COVID-19 Vaccine 2020-09-14 17:24:00 Completed [facility] Moderna COVID-19 Vaccine Moderna COVID-19 Vaccine 2020-09-14 17:24:00 Completed [facility] Moderna COVID-19 Vaccine Moderna COVID-19 Vaccine 2020-09-14 17:24:00 Completed [facility] Moderna COVID-19 Vaccine Moderna COVID-19 Vaccine 2020-09-14 17:24:00 Completed [facility] Moderna COVID-19 Vaccine Moderna COVID-19 Vaccine 2020-09-14 17:24:00 Completed [facility] Moderna COVID-19 Vaccine Moderna COVID-19 Vaccine 2020-09-14 17:24:00 Completed [facility] Moderna COVID-19 Vaccine Moderna COVID-19 Vaccine 2020-09-14 17:24:00 Completed [facility] Moderna COVID-19 Vaccine Moderna COVID-19 Vaccine 2020-09-14 17:24:00 Completed [facility] Moderna COVID-19 Vaccine Moderna COVID-19 Vaccine 2020-09-14 17:24:00 Completed [facility] Afluria single dose Afluria single dose 14:20:00 Completed [facility] Afluria single dose Afluria single dose 14:20:00 Completed [facility] Afluria single dose Afluria single dose 14:20:00 Completed [facility] Afluria single dose Afluria single dose 14:20:00 Completed [facility] Afluria single dose Afluria single dose 14:20:00 Completed [facility] Afluria single dose Afluria single dose 14:20:00 Completed [facility] Afluria single dose Afluria single dose 14:20:00 Completed [facility] Afluria single dose Afluria single dose 14:20:00 Completed [facility] Afluria single dose Afluria single dose 14:20:00 Completed [facility] Afluria single dose Afluria single dose 14:20:00 Completed [facility] Afluria single dose Afluria single dose 14:20:00 Completed [facility] Afluria single dose Afluria single dose 14:20:00 Completed [facility] Moderna COVID-19 Vaccine Moderna COVID-19 Vaccine Unknown Completed [facility] Moderna COVID-19 Vaccine Moderna COVID-19 Vaccine Unknown Completed [facility] Afluria single dose Afluria single dose Unknown Completed [facility] Fluarix Fluarix Unknown Completed [facility] Flucelvax - single dose syringe Flucelvax - single dose syringe Unknown Completed [facility] Boostrix (Tdap) Boostrix (Tdap) Unknown [facility] Moderna COVID-19 Vaccine Unknown Completed [facility] Moderna COVID-19 Vaccine Moderna COVID-19 Vaccine Unknown Completed [facility] Afluria single dose Afluria single dose Unknown Completed [facility] Fluarix Fluarix Unknown Completed [facility] Flucelvax - single dose syringe Flucelvax - single dose syringe Unknown Completed [facility] Boostrix (Tdap) Boostrix (Tdap) Unknown Completed [facility] Moderna COVID-19 Vaccine Moderna COVID-19 Vaccine Unknown [facility] Moderna COVID-19 Vaccine Unknown Completed [facility] Afluria single dose Afluria single dose Unknown Completed [facility] Fluarix Fluarix Unknown Completed [facility] Flucelvax - single dose syringe Flucelvax - single dose syringe Unknown Completed [facility] Boostrix (Tdap) Boostrix (Tdap) Unknown Completed [facility] Moderna COVID-19 Vaccine Moderna COVID-19 Vaccine Unknown Completed [facility] Moderna COVID-19 Vaccine Moderna COVID-19 Vaccine Unknown Completed [facility] Afluria single dose Afluria single dose Unknown Completed [facility] Fluarix Fluarix Unknown Completed [facility] Flucelvax - single dose syringe Flucelvax - single dose syringe Unknown Completed [facility] Boostrix (Tdap) Boostrix (Tdap) Unknown Completed [facility] Moderna COVID-19 Vaccine Moderna COVID-19 Vaccine Unknown Completed [facility] Moderna COVID-19 Vaccine Moderna COVID-19 Vaccine Unknown Completed [facility] Afluria single dose Afluria single dose Unknown Completed [facility] Fluarix Fluarix Unknown Completed [facility] Flucelvax - single dose syringe Flucelvax - single dose syringe Unknown Completed [facility] Boostrix (Tdap) Boostrix (Tdap) Unknown Completed [facility] Moderna COVID-19 Vaccine Moderna COVID-19 Vaccine Unknown Completed [facility] Moderna COVID-19 Vaccine Moderna COVID-19 Vaccine Unknown Completed [facility] Afluria (IIV4) - 3 years and older - SDS - 0.5mL Afluria (IIV4) - 3 years and older - SDS - 0.5mL Unknown Completed [facility] Fluarix (IIV4) - SDS - 0.5mL Fluarix (IIV4) - SDS - 0.5mL Unknown Completed [facility] Flucelvax (ccIIV4) - SDS - 0.5mL Flucelvax (ccIIV4) - SDS - 0.5mL Unknown Completed [facility] Boostrix (Tdap) Boostrix (Tdap) Unknown Completed [facility] Moderna COVID-19 Vaccine Moderna COVID-19 Vaccine Unknown Completed [facility] Moderna COVID-19 Vaccine Moderna COVID-19 Vaccine Unknown Completed [facility] Afluria (IIV4) - 3 years and older - SDS - 0.5mL Afluria (IIV4) - 3 years and older - SDS - 0.5mL Unknown Completed [facility] Fluarix (IIV4) - SDS - 0.5mL Fluarix (IIV4) - SDS - 0.5mL Unknown Completed [facility] Flucelvax (ccIIV4) - SDS - 0.5mL Flucelvax (ccIIV4) - SDS - 0.5mL Unknown Completed [facility] Boostrix (Tdap) Boostrix (Tdap) Unknown Completed [facility] [place] Vital Signs Vital Name Observation Time Observation Value Comments S khushi height 2023-03-31 13:20:00 55 [in_i] Commo n [facility] [place] weight 2023-03-31 13:20:00 203.0 [lb_av] Co mmon [facility] [place] temperature 2023-03-31 13:20:00 97.6 [degF] Com mon [facility] [place] bmi 2023-03-31 13:20:00 47.18 kg/m2 Comm on [facility] [place] oximetry 2023-03-31 13:20:00 96 % Commo n [facility] [place] respiratory rate 2023-03-31 13:20:00 17 /min [facility] blood pressure systolic 2023-03-31 13:20:00 120 mm[Hg] [facility] blood pressure diastolic 2023-03-31 13:20:00 67 mm[Hg] [facility] height 2023-01-30 13:00:00 55 [in_i] Commo n [facility] [place] weight 2023-01-30 13:00:00 208 [lb_av] Comm on [facility] [place] bmi 2023-01-30 13:00:00 48.34 kg/m2 Comm on [facility] [place] blood pressure systolic 2023-01-30 13:00:00 125 mm[Hg] [facility] blood pressure diastolic 2023-01-30 13:00:00 72 mm[Hg] [facility] height 2023-01-23 13:00:00 55 [in_i] Commo n [facility] [place] weight 2023-01-23 13:00:00 208.0 [lb_av] Co mmon [facility] [place] temperature 2023-01-23 13:00:00 98.0 [degF] Com mon [facility] [place] bmi 2023-01-23 13:00:00 48.34 kg/m2 Comm on [facility] [place] oximetry 2023-01-23 13:00:00 98 % Commo n [facility] [place] respiratory rate 2023-01-23 13:00:00 18 /min Common [facility] [place] blood pressure systolic 2023-01-23 13:00:00 121 mm[Hg] Common [facility] blood pressure diastolic 2023-01-23 13:00:00 67 mm[Hg] [facility] height 2023-01-01 13:00:00 55 [in_i] Commo n [facility] [place] weight 2023-01-01 13:00:00 205 [lb_av] Comm on [facility] [place] temperature 2023-01-01 13:00:00 98.3 [degF] Com mon [facility] [place] bmi 2023-01-01 13:00:00 47.64 kg/m2 Comm on [facility] [place] oximetry 2023-01-01 13:00:00 96 % Commo n [facility] [place] respiratory rate 2023-01-01 13:00:00 17 /min Common [facility] [place] blood pressure systolic 2023-01-01 13:00:00 121 mm[Hg] [facility] blood pressure diastolic 2023-01-01 13:00:00 61 mm[Hg] [facility] height 2022-07-04 10:00:00 55 [in_i] Commo n [facility] [place] weight 2022-07-04 10:00:00 193.4 [lb_av] Co mmon [facility] [place] temperature 2022-07-04 10:00:00 97.7 [degF] Com mon [facility] [place] bmi 2022-07-04 10:00:00 44.95 kg/m2 Comm on [facility] [place] oximetry 2022-07-04 10:00:00 98 % Commo n [facility] [place] respiratory rate 2022-07-04 10:00:00 17 /min Common [facility] [place] blood pressure systolic 2022-07-04 10:00:00 121 mm[Hg] Common [facility] blood pressure diastolic 2022-07-04 10:00:00 67 mm[Hg] Common [facility] height 2022-04-04 13:30:00 55 [in_i] Commo n [facility] [place] weight 2022-04-04 13:30:00 192.5 [lb_av] Co [facility] temperature 2022-04-04 13:30:00 97.7 [degF] Com mon [facility] [place] bmi 2022-04-04 13:30:00 44.74 kg/m2 Comm on [facility] [place] oximetry 2022-04-04 13:30:00 98 % Commo n [facility] [place] respiratory rate 2022-04-04 13:30:00 17 /min [facility] blood pressure systolic 2022-04-04 13:30:00 119 mm[Hg] Common [facility] blood pressure diastolic 2022-04-04 13:30:00 63 mm[Hg] [facility] height 2022-03-29 08:40:00 55 [in_i] Commo n [facility] [place] weight 2022-03-29 08:40:00 198.8 [lb_av] Co [facility] bmi 2022-03-29 08:40:00 46.2 kg/m2 Commo n [facility] [place] height 2022-01-02 14:00:00 55 [in_i] Commo n [facility] [place] weight 2022-01-02 14:00:00 198.8 [lb_av] Co [facility] temperature 2022-01-02 14:00:00 97.8 [degF] Com mon [facility] [place] bmi 2022-01-02 14:00:00 46.2 kg/m2 Commo n [facility] [place] oximetry 2022-01-02 14:00:00 97 % Commo n [facility] [place] respiratory rate 2022-01-02 14:00:00 17 /min Common [facility] [place] blood pressure systolic 2022-01-02 14:00:00 119 mm[Hg] Common [facility] blood pressure diastolic 2022-01-02 14:00:00 72 mm[Hg] [facility] height 2021-12-14 11:00:00 55 [in_i] Commo n [facility] [place] weight 2021-12-14 11:00:00 198.8 [lb_av] Co mmon [facility] [place] temperature 2021-12-14 11:00:00 98.3 [degF] Com mon [facility] [place] bmi 2021-12-14 11:00:00 46.2 kg/m2 Commo n [facility] [place] oximetry 2021-12-14 11:00:00 99 % Commo n [facility] [place] respiratory rate 2021-12-14 11:00:00 17 /min Common [facility] [place] blood pressure systolic 2021-12-14 11:00:00 120 mm[Hg] [facility] blood pressure diastolic 2021-12-14 11:00:00 65 mm[Hg] Common [facility] height 2021-10-01 14:00:00 55 [in_i] Commo n [facility] [place] weight 2021-10-01 14:00:00 194.6 [lb_av] Co mmon [facility] [place] temperature 2021-10-01 14:00:00 97.9 [degF] Com [facility] bmi 2021-10-01 14:00:00 45.22 kg/m2 Comm on [facility] [place] oximetry 2021-10-01 14:00:00 97 % Commo n [facility] [place] respiratory rate 2021-10-01 14:00:00 17 /min Common [facility] [place] blood pressure systolic 2021-10-01 14:00:00 120 mm[Hg] Common [facility] blood pressure diastolic 2021-10-01 14:00:00 61 mm[Hg] Common [facility] Systolic blood pressure 2021-07-04 19:42:00 102 mm[Hg] manual [facility] Diastolic blood pressure 2021-07-04 19:42:00 62 mm[Hg] manual [facility] Heart rate 2021-07-04 19:42:00 83 /min [facility] Respiratory rate 2021-07-04 19:42:00 22 /min [facility] Body height 2021-07-04 19:42:00 144.8 cm [facility] Body weight 2021-07-04 19:42:00 90.357 kg [facility] BMI 2021-07-04 19:42:00 43.11 kg/m2 [facility] Oxygen saturation in Arterial blood by Pulse oximetry 2021-07-04 19:42:00 94 /min [facility] height 2021-07-02 14:20:00 55 [in_i] Commo n [facility] [place] weight 2021-07-02 14:20:00 194.0 [lb_av] Co mmon [facility] [place] temperature 2021-07-02 14:20:00 97.8 [degF] Com mon [facility] [place] bmi 2021-07-02 14:20:00 45.08 kg/m2 Comm on [facility] [place] oximetry 2021-07-02 14:20:00 97 % Commo n [facility] [place] respiratory rate 2021-07-02 14:20:00 17 /min Common [facility] [place] blood pressure systolic 2021-07-02 14:20:00 122 mm[Hg] [facility] blood pressure diastolic 2021-07-02 14:20:00 65 mm[Hg] [facility] Encounters Start Date/Time End Date/Time Encounter Type Admission Type Attending Clinicians Care Facility Care Department Encounter ID Source 2023-03-31 13:09:00 Outpatient Armenta, Bebeto STLMLC STL[facility]C [id number] [facility] 2022-10-02 13:08:01 Outpatient Armenta, Bebeto STLC STLMLC [id number] [facility] 2022-06-12 10:56:00 Outpatient Armenta, Bebeto STLC STLML[facility] [id number] [facility] 2021-12-14 10:46:00 Outpatient Armenta, Bebeto STLC STL[facility] [id number] [facility] 2021-10-01 13:55:00 Outpatient Armenta, Bebeto STLC STL[facility] [id number] [facility] 2021-07-25 14:30:14 Outpatient Armenta, Bebeto STLC STLMLC [id number] [facility] 2021-07-25 13:42:46 Outpatient Armenta, Bebeto STLC STL[facility] [id number] [facility] 2021-07-25 12:56:29 Outpatient Armenta, Bebeto STLC STLMLC [id number] [facility] 2021-07-25 12:23:58 Outpatient Armenta, Bebeto STLMLC STLMLC [id number] [facility] 2021-07-25 11:10:00 Outpatient Armenta, Bebeto STLMLC STLMLC [id number] [facility] 2021-07-25 11:02:04 Outpatient Armenta, Bebeto STLMLC STLMLC [id number] [facility] 2021-07-25 10:58:48 Outpatient Armenta, Bebeto STLMLC STLMLC [id number] [facility] 2023-03-31 00:00:00 2023-03-31 00:00:00 OFFICE VISIT ESTAB PT LEVEL 4 STLMLC STLMLC [id number] [facility] 2023-01-30 00:00:00 2023-01-30 00:00:00 OFFICE VISIT ESTAB PT LEVEL 4 [facility]C STL[facility]C [id number] [facility] 2023-01-24 00:00:00 2023-01-24 00:00:00 (TEL) STLMLC STLMLC [id number] [facility] 2023-01-23 00:00:00 2023-01-23 00:00:00 PREV VISIT EST AGE 18-39 STLMLC STLMLC [id number] [facility] 2023-01-01 00:00:00 2023-01-01 00:00:00 (TEL) STLMLC STLMLC [id number] [facility] 2023-01-01 00:00:00 2023-01-01 00:00:00 OFFICE VISIT ESTAB PT LEVEL 2 STLMLC STLMLC [id number] [facility] 2022-11-27 00:00:00 2022-11-27 00:00:00 (TEL) STLMLC STLMLC [id number] [facility] 2022-07-04 00:00:00 2022-07-04 00:00:00 OFFICE VISIT ESTAB PT LEVEL 2 STLMLC STLMLC [id number] [facility] 2022-06-06 00:00:00 2022-06-06 00:00:00 (TEL) STLMLC STLMLC [id number] [facility] 2022-04-04 00:00:00 2022-04-04 00:00:00 OFFICE VISIT ESTAB PT LEVEL 2 STLMLC STLMLC [id number] [facility] 2022-03-29 00:00:00 2022-03-29 00:00:00 OFFICE VISIT EST PT LEVEL 3 STL[facility]C STL[facility]C [id number] [facility] 2022-03-28 00:00:00 2022-03-28 00:00:00 (TEL) STLMLC STLMLC [id number] [facility] 2022-01-02 00:00:00 2022-01-02 00:00:00 OFFICE VISIT ESTAB PT LEVEL 2 STL[facility]C STLMLC [id number] [facility] 2021-12-14 00:00:00 2021-12-14 00:00:00 OFFICE VISIT EST PT LEVEL 3 [facility]C STL[facility]C [id number] [facility] 2021-10-01 00:00:00 2021-10-01 00:00:00 OFFICE VISIT ESTAB PT LEVEL 2 STL[facility]C STL[facility]C [id number] [facility] 2021-09-27 00:00:00 2021-09-27 00:00:00 (TEL) STLMLC STLMLC [id number] [facility] 2021-08-02 10:25:35 2021-08-02 23:59:00 Hospital Encounter Mignon Sow [facility] 1.2.840.114 350.1.13.10 4.2.7.2.686 [id number] [facility] 2021-08-02 10:24:44 2021-08-02 10:24:44 Hospital Encounter Mignon Sow [facility] 1.2.840.114 350.1.13.10 4.2.7.2.686 [id number] [facility] 2021-08-02 00:00:00 2021-08-02 10:24:44 Outpatient R MIGNON SOW [facility] [id number] [facility] 2021-07-04 13:00:00 2021-07-04 14:05:14 Outpatient R MIGNON SOW NJTONY [facility] [id number] [facility] 2021-07-04 13:00:00 2021-07-04 14:05:14 Office Visit Mignon Sow [facility] 1.2.840.114 350.1.13.10 4.2.7.2.686 [id number] [facility] 2021-07-04 13:00:00 2021-07-04 14:05:14 Outpatient R MIGNON SOW [facility] [id number] [facility] 2021-07-02 00:00:00 2021-07-02 00:00:00 OFFICE VISIT ESTAB PT LEVEL 2 [facility] [id number] [facility] 2021-06-28 07:58:07 2021-06-28 23:59:00 Outpatient R MIGNON SOW [facility] [id number] [facility] 2021-06-28 07:58:07 2021-06-28 23:59:00 Hospital Encounter Mignon SowYohannes [facility] 1.2.840.114 350.1.13.10 4.2.7.2.686 [id number] [facility] 2021-06-14 00:00:00 2021-06-14 00:00:00 Telephone Mignon Sow [facility] 1.2.840.114 350.1.13.10 4.2.7.2.686 [id number] [facility] 2021-05-28 13:00:00 2021-05-28 13:00:00 Outpatient R MIGNON SOW [facility] [id number] [facility] 2021-05-04 00:00:00 2021-05-04 00:00:00 Orders Only Doctor Unassigned, [place] [facility] 1.2.840.114 350.1.13.10 4.2.7.2.686 [id number] [facility] 2021-04-25 09:30:2021-04-25 10:00:13 Office Visit Mignon Sow [facility] 1.2.840.114 350.1.13.10 4.2.7.2.686 [id number] [facility] 2021-04-25 09:30:00 2021-04-25 10:00:13 Outpatient R MIGNON SOW [facility] [id number] [facility] 2021-04-25 09:30:00 2021-04-25 09:30:00 Outpatient R MIGNON SOW [facility] [id number] [facility] 2021-04-25 09:30:00 2021-04-25 09:30:00 Outpatient R MIGNON SOW [facility] [id number] [facility] 2021-04-25 00:00:00 2021-04-25 00:00:00 Orders Only Doctor Unassigned, [place] [facility] 1.2.840.114 350.1.13.10 4.2.7.2.686 [id number] [facility] 2021-03-27 00:00:00 2021-03-27 00:00:00 Letter (Out) Viraj Armenta [facility] 1.2.840.114 350.1.13.10 4.2.7.2.686 [id number] [facility] 2021-02-22 00:00:00 2021-02-22 00:00:00 Orders Only Doctor Unassigned, [place] [facility] 1.2.840.114 350.1.13.10 4.2.7.2.686 [id number] [facility] 2021-02-21 00:00:00 2021-02-21 00:00:00 Outpatient [facility]C ST[facility] [id number] [facility] 2021-02-21 00:00:00 2021-02-21 00:00:00 Outpatient STLMLC ST[facility]C [id number] [facility] 2021-02-19 00:00:00 2021-02-19 00:00:00 Outpatient STLMLC STL[facility]C [id number] [facility] 2021-02-19 00:00:00 2021-02-19 00:00:00 Outpatient STLMLC STL[facility]C [id number] [facility] 2020-11-16 00:00:00 2020-11-16 00:00:00 Outpatient STLMLC ST[facility]C [id number] [facility] 2020-10-24 00:00:00 2020-10-24 00:00:00 Outpatient STLMLC STL[facility]C [id number] [facility] 2020-09-19 00:00:00 2020-09-19 00:00:00 Patient Outreach Leobardo Pool [facility] 1.2.840.114 350.1.13.10 4.2.7.2.686 [id number] [facility] 2020-06-12 14:00:00 2020-06-12 14:00:00 Outpatient FOZIA HUTCHINSON [facility] [id number] [facility] 2020-06-12 14:00:00 2020-06-12 14:00:00 Outpatient FOZIA HUTCHINSON [facility] [id number] [facility] 2020-03-29 00:00:00 2020-03-29 00:00:00 Outpatient STLMLC STL[facility]C [id number] [facility] 2020-02-23 09:00:00 2020-02-23 09:00:00 [facility] [id number] [facility] 2019-11-23 13:30:00 2019-11-23 13:30:00 [facility] [id number] [facility] 2019-10-08 11:06:00 2019-10-08 11:06:[address] [facility] [id number] [facility] 2019-08-24 13:00:00 2019-08-24 13:00:00 [facility] [id number] [facility] 2019-07-20 09:45:00 2019-07-20 09:45:00 [facility] [id number] [facility] 2019-05-24 13:00:00 2019-05-24 13:00:00 [facility] [id number] [facility] 2019-04-08 13:30:00 2019-04-08 13:30:00 [facility] [id number] [facility] 2019-03-23 16:50:00 2019-03-23 16:50:00 [address] [facility] [id number] [facility] 2019-03-08 14:45:00 2019-03-08 14:45:[address] [facility] Medicine [id number] [facility] 2019-02-27 00:00:00 2019-02-27 00:00:00 Orders Only Doctor Unassigned, [place] [facility] .2.840.114 350.1.13.10 4.2.7.2.686 [id number] [facility] 2019-02-24 14:30:00 2019-02-24 14:30:[address] [facility] [id number] [facility] 2019-02-19 10:29:19 2019-02-19 11:16:55 Nurse Visit Nurse, [facility] Guera Enrique [place] [id number] 350.1.13.10 4.2.7.2.686 [id number] [facility] 2001-11-24 00:00:00 2001-11-24 00:00:00 Orders Only Doctor Unassigned, [place] [facility] 1.2.840.114 350.1.13.10 4.2.7.2.686 [id number] [facility] 1998 00:00:00 1998 00:00:00 Orders Only Doctor Unassigned, [place] [facility] 1.2.840.114 350.1.13.10 4.2.7.2.686 [id number] [facility] 1998 00:00:00 1998 00:00:00 Orders Only Doctor Unassigned, [place] [facility] 1.2.840.114 350.1.13.10 4.2.7.2.686 [id number] [facility] 1998 00:00:00 1998 00:00:00 Orders Only Doctor Unassigned, [place] [facility] 1.2.840.114 350.1.13.10 4.2.7.2.686 [id number] [facility] 1998 00:00:00 1998 00:00:00 Orders Only Doctor Unassigned, [place] [facility] 1.2.840.114 350.1.13.10 4.2.7.2.686 [id number] [facility] 1998 00:00:00 1998 00:00:00 Orders Only Doctor Unassigned, [place] [facility] 1.2.840.114 350.1.13.10 4.2.7.2.686 [id number] [facility] Results Test Description Test Time Test Comments Results Result Co mments Source THYROID II PROFILE (TU, T4, T7, TSH)2023-06-19 00:00:00* Test Item Value Reference Range Interpretation Comme nts CORRECTED T4 (FTI) (test code = 27474-3) 10.6 UG/DL See_Comment [Automated messa ge] The system which generated this result transmitted reference range: 4.2-11.6 UG/DL. The reference range was not used to interpret this result as normal/abnormal. T-UPTAKE (test code = 86231-4) 36.1 % See_Comment [Automated messa ge] The system which generated this result transmitted reference range: 24.3-39.0 %. The reference range was not used to interpret this result as normal/abnormal. T4 (THYROXINE) (test code = 3026-2) 9.5 UG/DL See_Comment [Automated messa ge] The system which generated this result transmitted reference range: 4.5-10.5 UG/DL. The reference range was not used to interpret this result as normal/abnormal. THYROX. BIND. CAPAC. (test code = 04853-2) 0.9 0.8-1.3 TSH, THIRD GENERATION (test code = 95827-0) 2.460 UIU/ML See_Comment [Automated messa ge] The system which generated this result transmitted reference range: 0.400-4.100 UIU/ML. The reference range was not used to interpret this result as normal/abnormal. COMPREHENSIVE METABOLIC [id number] 00:00:00* Test Item Value Reference Range Interpretation Comme nts ALBUMIN (test code = 1751-7) 4.0 G/DL See_Comment [Automated messa ge] The system which generated this result transmitted reference range: 3.5-5.2 G/DL. The reference range was not used to interpret this result as normal/abnormal. ALKALINE PHOSPHATASE (test code = 6768-6) 74 U/L See_Comment [Automated message] The system which generated this result transmitted reference range: 40-112 U/L. The reference range was not used to interpret this result as normal/abnormal. BILIRUBIN, TOTAL (test code = 1975-2) 0.4 MG/DL See_Comment [Automated message] The system which generated this result transmitted reference range: <=1.2 MG/DL. The reference range was not used to interpret this result as normal/abnormal. BUN (test code = 3094-0) 9 MG/DL See_Comment [Automated messa ge] The system which generated this result transmitted reference range: 6-20 MG/DL. The reference range was not used to interpret this result as normal/abnormal. CALCIUM (test code = 52684-3) 9.0 MG/DL See_Comment [Automated messa ge] The system which generated this result transmitted reference range: 8.5-10.5 MG/DL. The reference range was not used to interpret this result as normal/abnormal. CALC A/G RATIO (test code = 1759-0) 1.5 RATIO See_Comment [Automated messa ge] The system which generated this result transmitted reference range: 1.0-2.6 RATIO. The reference range was not used to interpret this result as normal/abnormal. CALC BUN/CREAT (test code = 3097-3) 14 RATIO See_Comment [Automated messa ge] The system which generated this result transmitted reference range: 6-28 RATIO. The reference range was not used to interpret this result as normal/abnormal. CALC GLOBULIN (test code = 19005-7) 2.6 G/DL See_Comment [Automated messa ge] The system which generated this result transmitted reference range: 1.9-3.7 G/DL. The reference range was not used to interpret this result as normal/abnormal. CARBON DIOXIDE (test code = 1963-8) 20 MEQ/L See_Comment [Automated messa ge] The system which generated this result transmitted reference range: 19-31 MEQ/L. The reference range was not used to interpret this result as normal/abnormal. CHLORIDE (test code = 2075-0) 109 MEQ/L See_Comment H [Automated messa ge] The system which generated this result transmitted reference range: 95-107 MEQ/L. The reference range was not used to interpret this result as normal/abnormal. CREATININE (test code = 2160-0) 0.64 MG/DL See_Comment [Automated messa ge] The system which generated this result transmitted reference range: 0.60-1.30 MG/DL. The reference range was not used to interpret this result as normal/abnormal. eGFR (2020 CKD-EPI) (test code = 57540-4) 126 ML/MIN/1.73 See_Comment [Automated message] The system which generated this result transmitted reference range: >60 ML/MIN/1.73. The reference range was not used to interpret this result as normal/abnormal. GLUCOSE (test code = 1558-6) 162 MG/DL See_Comment H [Automated messa ge] The system which generated this result transmitted reference range: 70-99 MG/DL. The reference range was not used to interpret this result as normal/abnormal. POTASSIUM (test code = 2823-3) 4.4 MEQ/L See_Comment [Automated messa ge] The system which generated this result transmitted reference range: 3.5-5.4 MEQ/L. The reference range was not used to interpret this result as normal/abnormal. PROTEIN, TOTAL (test code = 2885-2) 6.6 G/DL See_Comment [Automated messa ge] The system which generated this result transmitted reference range: 6.1-8.3 G/DL. The reference range was not used to interpret this result as normal/abnormal. AST (test code = 1920-8) 24 U/L See_Comment [Automated messa ge] The system which generated this result transmitted reference range: 9-40 U/L. The reference range was not used to interpret this result as normal/abnormal. ALT (test code = 1742-6) 31 U/L See_Comment [Automated messa ge] The system which generated this result transmitted reference range: 5-40 U/L. The reference range was not used to interpret this result as normal/abnormal. SODIUM (test code = 2951-2) 143 MEQ/L See_Comment [Automated messa ge] The system which generated this result transmitted reference range: 133-146 MEQ/L. The reference range was not used to interpret this result as normal/abnormal. THYROID PEROXIDASE [id number] 00:00:00* Test Item Value Reference Range Interpretation Comme nts THYROID PEROXIDASE AB (test code = 8099-4) 81 IU/ML See_Comment H [Automated message] The system which generated this result transmitted reference range: <=34 IU/ML. The reference range was not used to interpret this result as normal/abnormal. THYROID II PROFILE (TU, T4, T7, TSH)2023-03-24 00:00:00* Test Item Value Reference Range Interpretation Comme nts CORRECTED T4 (FTI) (test code = 05318-4) 8.3 UG/DL See_Comment [Automated messa ge] The system which generated this result transmitted reference range: 4.2-11.6 UG/DL. The reference range was not used to interpret this result as normal/abnormal. T-UPTAKE (test code = 69504-6) 33.1 % See_Comment [Automated messa ge] The system which generated this result transmitted reference range: 24.3-39.0 %. The reference range was not used to interpret this result as normal/abnormal. T4 (THYROXINE) (test code = 3026-2) 8.3 UG/DL See_Comment [Automated messa ge] The system which generated this result transmitted reference range: 4.5-10.5 UG/DL. The reference range was not used to interpret this result as normal/abnormal. THYROX. BIND. CAPAC. (test code = 31174-2) 1.0 0.8-1.3 TSH, THIRD GENERATION (test code = 33532-4) 6.220 UIU/ML See_Comment H [Automated messa ge] The system which generated this result transmitted reference range: 0.400-4.100 UIU/ML. The reference range was not used to interpret this result as normal/abnormal. COMPREHENSIVE METABOLIC [id number] 00:00:00* Test Item Value Reference Range Interpretation Comme nts ALBUMIN (test code = 1751-7) 4.2 G/DL See_Comment [Automated messa ge] The system which generated this result transmitted reference range: 3.5-5.2 G/DL. The reference range was not used to interpret this result as normal/abnormal. ALKALINE PHOSPHATASE (test code = 6768-6) 70 U/L See_Comment [Automated message] The system which generated this result transmitted reference range: 40-112 U/L. The reference range was not used to interpret this result as normal/abnormal. BILIRUBIN, TOTAL (test code = 1975-2) 0.5 MG/DL See_Comment [Automated message] The system which generated this result transmitted reference range: <=1.2 MG/DL. The reference range was not used to interpret this result as normal/abnormal. BUN (test code = 3094-0) 10 MG/DL See_Comment [Automated messa ge] The system which generated this result transmitted reference range: 6-20 MG/DL. The reference range was not used to interpret this result as normal/abnormal. CALCIUM (test code = 23084-8) 9.5 MG/DL See_Comment [Automated messa ge] The system which generated this result transmitted reference range: 8.5-10.5 MG/DL. The reference range was not used to interpret this result as normal/abnormal. CALC A/G RATIO (test code = 1759-0) 1.7 RATIO See_Comment [Automated messa ge] The system which generated this result transmitted reference range: 1.0-2.6 RATIO. The reference range was not used to interpret this result as normal/abnormal. CALC BUN/CREAT (test code = 3097-3) 15 RATIO See_Comment [Automated messa ge] The system which generated this result transmitted reference range: 6-28 RATIO. The reference range was not used to interpret this result as normal/abnormal. CALC GLOBULIN (test code = 66545-6) 2.5 G/DL See_Comment [Automated messa ge] The system which generated this result transmitted reference range: 1.9-3.7 G/DL. The reference range was not used to interpret this result as normal/abnormal. CARBON DIOXIDE (test code = 1963-8) 22 MEQ/L See_Comment [Automated messa ge] The system which generated this result transmitted reference range: 19-31 MEQ/L. The reference range was not used to interpret this result as normal/abnormal. CHLORIDE (test code = 2075-0) 109 MEQ/L See_Comment H [Automated messa ge] The system which generated this result transmitted reference range: 95-107 MEQ/L. The reference range was not used to interpret this result as normal/abnormal. CREATININE (test code = 2160-0) 0.66 MG/DL See_Comment [Automated messa ge] The system which generated this result transmitted reference range: 0.60-1.30 MG/DL. The reference range was not used to interpret this result as normal/abnormal. eGFR (2020 CKD-EPI) (test code = 53221-7) 125 ML/MIN/1.73 See_Comment [Automated message] The system which generated this result transmitted reference range: >60 ML/MIN/1.73. The reference range was not used to interpret this result as normal/abnormal. GLUCOSE (test code = 1558-6) 140 MG/DL See_Comment H [Automated messa ge] The system which generated this result transmitted reference range: 70-99 MG/DL. The reference range was not used to interpret this result as normal/abnormal. POTASSIUM (test code = 2823-3) 4.5 MEQ/L See_Comment [Automated messa ge] The system which generated this result transmitted reference range: 3.5-5.4 MEQ/L. The reference range was not used to interpret this result as normal/abnormal. PROTEIN, TOTAL (test code = 2885-2) 6.7 G/DL See_Comment [Automated messa ge] The system which generated this result transmitted reference range: 6.1-8.3 G/DL. The reference range was not used to interpret this result as normal/abnormal. AST (test code = 1920-8) 24 U/L See_Comment [Automated messa ge] The system which generated this result transmitted reference range: 9-40 U/L. The reference range was not used to interpret this result as normal/abnormal. ALT (test code = 1742-6) 32 U/L See_Comment [Automated messa ge] The system which generated this result transmitted reference range: 5-40 U/L. The reference range was not used to interpret this result as normal/abnormal. SODIUM (test code = 2951-2) 143 MEQ/L See_Comment [Automated messa ge] The system which generated this result transmitted reference range: 133-146 MEQ/L. The reference range was not used to interpret this result as normal/abnormal. UA, MICROSCOPIC, REFLEX TO [id number] 00:00:00* Test Item Value Reference Range Interpretation Comme nts APPEARANCE (test code = 5767-9) CLEAR CLEAR BACTERIA (test code = 56952-7) NONE SEEN NONE SEEN BILIRUBIN (test code = 5770-3) NEGATIVE NEGATIVE CASTS, HYALINE (test code = 19477-1) NONE SEEN NONE-TRACE COLOR (test code = 5778-6) YELLOW YELLOW-STRAW EPITHELIAL CELLS (test code = 28444-6) 0-5 /HPF See_Comment [Automated messa ge] The system which generated this result transmitted reference range: 0-10 /HPF. The reference range was not used to interpret this result as normal/abnormal. GLUCOSE (test code = 5792-7) NEGATIVE NEGATIVE KETONES (test code = 5797-6) NEGATIVE NEGATIVE LEUKOCYTE ESTERASE (test code = 5799-2) TRACE NEGATIVE A NITRITE (test code = 5802-4) NEGATIVE NEGATIVE OCCULT BLOOD (test code = 94352-2) NEGATIVE NEGATIVE pH (test code = 5803-2) 6.0 5.0-9.0 PROTEIN (test code = 24042-0) NEGATIVE NEGATIVE RED BLOOD CELLS (test code = 31261-1) 0-2 /HPF See_Comment [Automated messa ge] The system which generated this result transmitted reference range: 0-2 /HPF. The reference range was not used to interpret this result as normal/abnormal. SPECIFIC GRAVITY (test code = 5811-5) 1.020 1.005-1.035 UROBILINOGEN (test code = 28921-7) 0.2 MG/DL See_Comment [Automated [employer] ge] The system which generated this result transmitted reference range: <=2.0 MG/DL. The reference range was not used to interpret this result as normal/abnormal. WHITE BLOOD CELLS (test code = 81908-0) 16-20 /HPF See_Comment A [Automated message] The system which generated this result transmitted reference range: 0-5 /HPF. The reference range was not used to interpret this result as normal/abnormal. CBC W/AUTO [id number] 00:00:00* Test Item Value Reference Range Interpretation Comme nts NUCLEATED RBCS (test code = 06492-3) 0.0 /100 WBC'S See_Comment [Automated [employer] ge] The system which generated this result transmitted reference range: 0.0 /100 WBC'S. The reference range was not used to interpret this result as normal/abnormal. ABSOLUTE EOSINOPHILS (test code = 14676-6) 0.16 K/UL See_Comment [Automated [employer] ge] The system which generated this result transmitted reference range: 0.00-0.50 K/UL. The reference range was not used to interpret this result as normal/abnormal. ABSOLUTE LYMPHOCYTES (test code = 52236-4) 1.51 K/UL See_Comment [Automated [employer] ge] The system which generated this result transmitted reference range: 1.00-4.00 K/UL. The reference range was not used to interpret this result as normal/abnormal. ABSOLUTE MONOCYTES (test code = 64293-2) 0.61 K/UL See_Comment [Automated messa ge] The system which generated this result transmitted reference range: 0.20-1.00 K/UL. The reference range was not used to interpret this result as normal/abnormal. ABSOLUTE NEUTROPHILS (test code = 96321-9) 5.47 K/UL See_Comment [Automated messa ge] The system which generated this result transmitted reference range: 1.50-7.50 K/UL. The reference range was not used to interpret this result as normal/abnormal. BASOPHILS (test code = 91474-5) 1.8 % EOSINOPHILS (test code = 78630-6) 2.0 % HEMATOCRIT (test code = 97301-0) 41.8 % See_Comment [Automated messa ge] The system which generated this result transmitted reference range: 34.0-45.0 %. The reference range was not used to interpret this result as normal/abnormal. HEMOGLOBIN (test code = 718-7) 14.3 G/DL See_Comment [Automated messa ge] The system which generated this result transmitted reference range: 11.5-15.5 G/DL. The reference range was not used to interpret this result as normal/abnormal. LYMPHOCYTES (test code = 97614-5) 19.0 % MCH (test code = 43059-8) 33.1 PG See_Comment H [Automated messa ge] The system which generated this result transmitted reference range: 25.0-33.0 PG. The reference range was not used to interpret this result as normal/abnormal. MCHC (test code = 17369-1) 34.2 G/DL See_Comment [Automated messa ge] The system which generated this result transmitted reference range: 31.0-36.0 G/DL. The reference range was not used to interpret this result as normal/abnormal. MCV (test code = 34483-5) 96.8 fL See_Comment [Automated messa ge] The system which generated this result transmitted reference range: 80.0-99.0 fL. The reference range was not used to interpret this result as normal/abnormal. MONOCYTES (test code = 41700-7) 7.7 % NEUTROPHILS (test code = 87192-8) 68.9 % PLATELET COUNT (test code = 31775-9) 419 K/UL See_Comment H [Automated messa ge] The system which generated this result transmitted reference range: 130-400 K/UL. The reference range was not used to interpret this result as normal/abnormal. RBC (test code = 12838-5) 4.32 M/UL See_Comment [Automated messa ge] The system which generated this result transmitted reference range: 3.80-5.40 M/UL. The reference range was not used to interpret this result as normal/abnormal. RDW (test code = 56763-8) 12.9 % See_Comment [Automated messa ge] The system which generated this result transmitted reference range: 11.5-15.0 %. The reference range was not used to interpret this result as normal/abnormal. WBC (test code = 21138-9) 7.9 K/UL See_Comment [Automated messa ge] The system which generated this result transmitted reference range: 3.5-11.0 K/UL. The reference range was not used to interpret this result as normal/abnormal. HEMOGLOBIN [id number] 00:00:00* Test Item Value Reference Range Interpretation Comme nts HEMOGLOBIN A1c (test code = 4548-4) 6.2 % See_Comment H [Automated messa ge] The system which generated this result transmitted reference range: 4.2-5.6 %. The reference range was not used to interpret this result as normal/abnormal. FREE T4 (THYROXINE)2023-01-24 00:00:00* Test Item Value Reference Range Interpretation Comme nts FREE T4 (THYROXINE) (test code = 3024-7) 1.08 NG/DL See_Comment [Automated messa ge] The system which generated this result transmitted reference range: 0.80-1.90 NG/DL. The reference range was not used to interpret this result as normal/abnormal. TSH REFLEX TO FREE [id number] 00:00:00* Test Item Value Reference Range Interpretation Comme nts TSH REFLEX TO FREE T4 (test code = 38215-5) 14.000 UIU/ML See_Comment H [Automated messa ge] The system which generated this result transmitted reference range: 0.400-4.100 UIU/ML. The reference range was not used to interpret this result as normal/abnormal. LIPID PANEL WITH REFLEX DIRECT [id number] 00:00:00* Test Item Value Reference Range Interpretation Comme nts CALC LDL CHOL (test code = 93031-6) 72 MG/DL See_Comment [Automated messa ge] The system which generated this result transmitted reference range: <100 MG/DL. The reference range was not used to interpret this result as normal/abnormal. CHOLESTEROL (test code = 2093-3) 123 MG/DL See_Comment [Automated messa ge] The system which generated this result transmitted reference range: <200 MG/DL. The reference range was not used to interpret this result as normal/abnormal. HDL CHOLESTEROL (test code = 2085-9) 29 MG/DL See_Comment L [Automated messa ge] The system which generated this result transmitted reference range: >39 MG/DL. The reference range was not used to interpret this result as normal/abnormal. RISK RATIO LDL/HDL (test code = 65007-1) 2.48 RATIO See_Comment [Automated message] The system which generated this result transmitted reference range: <3.22 RATIO. The reference range was not used to interpret this result as normal/abnormal. TRIGLYCERIDES (test code = 2571-8) 135 MG/DL See_Comment [Automated messa ge] The system which generated this result transmitted reference range: <150 MG/DL. The reference range was not used to interpret this result as normal/abnormal. COMPREHENSIVE METABOLIC [id number] 00:00:00* Test Item Value Reference Range Interpretation Comme nts ALBUMIN (test code = 1751-7) 4.2 G/DL See_Comment [Automated messa ge] The system which generated this result transmitted reference range: 3.5-5.2 G/DL. The reference range was not used to interpret this result as normal/abnormal. ALKALINE PHOSPHATASE (test code = 6768-6) 69 U/L See_Comment [Automated message] The system which generated this result transmitted reference range: 40-115 U/L. The reference range was not used to interpret this result as normal/abnormal. BILIRUBIN, TOTAL (test code = 1975-2) 0.4 MG/DL See_Comment [Automated message] The system which generated this result transmitted reference range: <=1.2 MG/DL. The reference range was not used to interpret this result as normal/abnormal. BUN (test code = 3094-0) 8 MG/DL See_Comment [Automated messa ge] The system which generated this result transmitted reference range: 6-20 MG/DL. The reference range was not used to interpret this result as normal/abnormal. CALCIUM (test code = 15206-5) 9.3 MG/DL See_Comment [Automated messa ge] The system which generated this result transmitted reference range: 8.5-10.5 MG/DL. The reference range was not used to interpret this result as normal/abnormal. CALC A/G RATIO (test code = 1759-0) 1.5 RATIO See_Comment [Automated messa ge] The system which generated this result transmitted reference range: 1.0-2.6 RATIO. The reference range was not used to interpret this result as normal/abnormal. CALC BUN/CREAT (test code = 3097-3) 13 RATIO See_Comment [Automated messa ge] The system which generated this result transmitted reference range: 6-28 RATIO. The reference range was not used to interpret this result as normal/abnormal. CALC GLOBULIN (test code = 19744-9) 2.8 G/DL See_Comment [Automated messa ge] The system which generated this result transmitted reference range: 1.9-3.7 G/DL. The reference range was not used to interpret this result as normal/abnormal. CARBON DIOXIDE (test code = 1963-8) 23 MEQ/L See_Comment [Automated messa ge] The system which generated this result transmitted reference range: 19-31 MEQ/L. The reference range was not used to interpret this result as normal/abnormal. CHLORIDE (test code = 2075-0) 109 MEQ/L See_Comment H [Automated messa ge] The system which generated this result transmitted reference range: 95-107 MEQ/L. The reference range was not used to interpret this result as normal/abnormal. CREATININE (test code = 2160-0) 0.63 MG/DL See_Comment [Automated messa ge] The system which generated this result transmitted reference range: 0.60-1.30 MG/DL. The reference range was not used to interpret this result as normal/abnormal. eGFR (2020 CKD-EPI) (test code = 53177-8) 127 ML/MIN/1.73 See_Comment [Automated message] The system which generated this result transmitted reference range: >60 ML/MIN/1.73. The reference range was not used to interpret this result as normal/abnormal. GLUCOSE (test code = 1558-6) 106 MG/DL See_Comment H [Automated messa ge] The system which generated this result transmitted reference range: 70-99 MG/DL. The reference range was not used to interpret this result as normal/abnormal. POTASSIUM (test code = 2823-3) 4.5 MEQ/L See_Comment [Automated messa ge] The system which generated this result transmitted reference range: 3.5-5.4 MEQ/L. The reference range was not used to interpret this result as normal/abnormal. PROTEIN, TOTAL (test code = 2885-2) 7.0 G/DL See_Comment [Automated messa ge] The system which generated this result transmitted reference range: 6.1-8.3 G/DL. The reference range was not used to interpret this result as normal/abnormal. AST (test code = 1920-8) 25 U/L See_Comment [Automated messa ge] The system which generated this result transmitted reference range: 9-40 U/L. The reference range was not used to interpret this result as normal/abnormal. ALT (test code = 1742-6) 29 U/L See_Comment [Automated messa ge] The system which generated this result transmitted reference range: 5-40 U/L. The reference range was not used to interpret this result as normal/abnormal. SODIUM (test code = 2951-2) 143 MEQ/L See_Comment [Automated messa ge] The system which generated this result transmitted reference range: 133-146 MEQ/L. The reference range was not used to interpret this result as normal/abnormal.
--- NOTE | 2023-07-22 09:45 | ER ---
Nurse's Notes [facility] Name: Tanna Ramirez Age: 23 yrs Sex: Female : 2000 Arrival Date: 07/22/2023 Time: 09:22 Bed IW1 Private MD: Diagnosis: Dental Abscess Presentation: 07/22 09:38 Chief complaint: Parent and/or Guardian states: she was complaining of her tooth iw hurting on bottom right side last night, she woke up this morning and the right side of her face was swollen. Coronavirus screen: At this time, the client does not indicate any symptoms associated with coronavirus-19. Ebola Screen: Patient negative for fever greater than or equal to 101.5 degrees Fahrenheit, and additional compatible Ebola Virus Disease symptoms Patient denies exposure to infectious person. Patient denies travel to an Ebola-affected area in the 21 days before illness onset. No symptoms or risks identified at this time. Initial Sepsis Screen: Does the patient meet any 2 criteria? No. Patient's initial sepsis screen is negative. Does the patient have a suspected source of infection? No. Patient's initial sepsis screen is negative. Risk Assessment: Do you want to hurt yourself or someone else? Patient reports no desire to harm self or others. Onset of symptoms was July 21, 2023. 09:38 Method Of Arrival: Ambulatory iw 09:40 Acuity: FELICIA 4 iw Historical: - Allergies: 09:40 No Known Allergies; iw - PMHx: 09:40 Hypothyroidism; MHMR; iw - PSHx: 09:40 open heart SX; iw Assessment: 09:53 General: Appears in no apparent distress. Behavior is calm, cooperative, appropriate ll1 for age. Pain: Complains of pain in R lower jaw Quality of pain is described as aching. Neuro: No deficits noted. Cardiovascular: No deficits noted. EENT: Reports pain in right jaw. Vital Signs: 09:38 BP 135 / 78; Pulse 76; Resp 16; Temp 97.6; Pulse Ox 96% on R/A; iw ED Course: 09:25 Patient arrived in ED. ts1 09:26 Gelacio Devi MD is Attending Physician. ec2 09:40 Arm band placed on. iw 09:41 Triage completed. iw Administered Medications: No medications were administered Outcome: 09:44 Discharge ordered by . ec2 09:53 Discharged to home ambulatory, ll1 09:53 Condition: stable 09:53 Discharge instructions given to patient, family, Instructed on discharge instructions, follow up and referral plans. medication usage, Demonstrated understanding of instructions, follow-up care, medications, Prescriptions given X 1, 09:54 Patient left the ED. ll1 Signatures: Chata Geiger RN RN iw Micky Parks RN RN ll1 Ainsley King PAS PAS ts1 Gelacio Devi MD MD ec2 Corrections: (The following items were deleted from the chart) 09:41 09:40 Acuity: FELICIA 3 iw iw
--- NOTE | 2023-07-22 09:45 | EDPHYS ---
Physician Documentation [facility] Name: Tanna Ramirez Age: 23 yrs Sex: Female : 2000 Arrival Date: 07/22/2023 Time: 09: Bed IW1 Private MD: ED Physician Gelacio Devi HPI: 07/22 09:47 This 23 yrs old Female presents to ER via Ambulatory with complaints of ec2 Abscess. 09:47 Patient arrives today due to concern for right-sided facial swelling. Patient reports ec2 that she is having some pain at the right upper teeth. History gathered from guardian. No reported fevers or chills or nausea or vomiting. No issues with p.o. intake. Has not tried any medications for the symptoms. Symptoms started 1 day ago.. Historical: - Allergies: 09:40 No Known Allergies; iw - PMHx: 09:40 Hypothyroidism; MHMR; iw - PSHx: 09:40 open heart SX; iw ROS: 09:47 Constitutional: as per hpi ec2 Exam: 09:47 Constitutional: GEN: NAD Head: atraumatic Eyes: EOMI Ears: External ears are normal. ec2 Mouth: Scant amount of erythema noted at the right upper gumline, no purulence appreciated, no significant dental breakdown appreciated. Minimal overlying soft tissue swelling noted. CV: regular rate LUNGS: no respiratory distress ABD: non-distended SKIN: no evidence of rashes MSK: no evidence of trauma NEURO: moves all extremities equally Vital Signs: 09:38 BP 135 / 78; Pulse 76; Resp 16; Temp 97.6; Pulse Ox 96% on R/A; iw MDM: 09:38 Patient medically screened. ec2 09:47 Data reviewed: vital signs. ED course: Patient arrives today for evaluation of dental ec2 pain and possible facial swelling. Examination remarkable for mild findings as noted above. Suspect dental abscess versus soft tissue cellulitis. Low suspicion for maxillary abscess, low suspicion for septic process given the patient's reassuring vital signs and overall reassuring examination. Low suspicion for displaced infection. Will defer any lab work or CT imaging of the neck. Will start antibiotics and have her follow-up with a dentist. Return precautions given. . Administered Medications: No medications were administered Disposition Summary: 07/22/23 09:44 Discharge Ordered Notes: Location: Home ec2 Condition: Stable ec2 Diagnosis - Dental Abscess ec2 Followup: ec2 - With: Private Physician - When: - Reason: Recheck today's complaints Discharge Instructions: - Discharge Summary Sheet ec2 - Dental Abscess, [id number] ec2 Forms: - Medication Reconciliation Form ec2 - Thank You Letter ec2 - Antibiotic Education ec2 - Prescription Opioid Use ec2 - Patient Portal Instructions ec2 - Leadership Thank You Letter ec2 Prescriptions: - Augmentin ES-600 600-42.9 mg/5 mL Oral Suspension for Reconstitution - take 7.3 milliliter ORAL route 2 times per day for 7 days; 102.2 milliliter; ec2 Refills: 0, Product Selection Permitted Signatures: Chata Geiger RN RN iw Gelacio Devi MD MD ec2 Corrections: (The following items were deleted from the chart) 09:46 09:44 Patient medically screened. ec2 ec2
[2023-07-22 10:51] VITALS: BP 135/78; TEMP 97.6; O2SAT 96
== END ==
LOC: ER 09:22
DX: K04.7 Periapical abscess without sinus (principal)
CPT/HCPCS: 99283